=== PATIENT | male | born 1970 | race Caucasian/White ===

== ENCOUNTER 2017-06-20 15:34 | Inpatient (IN) ==
[2017-06-20 16:09] LABS: Bilirubin,Urine Large (Negative); Blood,Urine Negative (Negative); Clarity,Urine Cloudy (Clear); Color,Urine Orange (Yellow); Glucose,Urine (UA) Normal (Normal); Ketones,Urine 15 mg/dL (Negative); Leukocyte Esterase,Urine Small (Negative); Nitrite,Urine Positive (Negative); Protein,Urine 100 mg/dL (Neg-Trace); Specific Gravity,Urine 1.024 (1.010-1.025); Urobilinogen,Urine Normal (Normal)
[2017-06-20 16:11] LABS: Bacteria,Urine None Seen per hpf (None-Few); Squamous Epithelial Cell,Urine Many per lpf (None-Few)
[2017-06-20 16:21] LABS: Hyaline Casts,Urine Moderate per lpf (None-Few)
[2017-06-20 16:25] LABS: RBC,Urine 0-3 per hpf (0-3); Renal Epithelial Cells,Urine Few per hpf (None-Few)
[2017-06-20] MEDS ORDERED: Ondansetron 4 MG/2 ML VIAL IVP ONE (16:28)
[2017-06-20] MEDS ORDERED: 0.9 % Sodium Chloride 1,000 ML IVC ONE ×2 (16:28→19:20)
[2017-06-20] MEDS ORDERED: *HR* FentaNYL (PF) 100 MCG/2 ML VIAL IVP ONE ×2 (16:30→17:59)
[2017-06-20 17:34] LABS: Basophils % 0.3 %; Eosinophils # 0.1 K/mcL (0.0-0.6); Eosinophils % 0.7 %; Hematocrit 41.4 % (37.5-50.1); Immature Granulocytes % 1.3 % (0-4); Immature Platelets 10.5 % (1.1-6.1); Lymphocytes # 1.6 K/mcL (0.6-4.6); Mean Corpuscular HGB Conc 33.8 g/dL (31.6-35.5); Mean Corpuscular Hemoglobin 31.4 pg (28.0-33.3); Mean Corpuscular Volume 92.8 fL (83.0-100.0); Mean Platelet Volume 10.5 fL (9.4-12.4); Monocytes # 1.9 K/mcL (0.0-1.3); Monocytes % 15.8 %; Neutrophils # 8.4 K/mcL (1.6-8.9); Platelet Count 138 K/mcL (140-400); Red Blood Count 4.46 M/mcL (4.19-5.50); Red Cell Distribution Width 13.2 % (11.5-14.5); Segmented Neutrophils % 68.9 %
[2017-06-20 17:49] LABS: Alanine Aminotransferase 32 Units/L (0-55); Albumin 2.6 g/dL (3.5-5.0); Albumin/Globulin Ratio 0.6 (1.1-2.2); Alkaline Phosphatase 112 Units/L (38-126); Aspartate Amino Transferase 60 Units/L (5-34); BUN/Creatinine Ratio 34 (6-26); Bilirubin,Indirect 1.5 mg/dL (0.0-1.2); Bilirubin,Total 5.5 mg/dL (0.2-1.2); Blood Urea Nitrogen 33 mg/dL (8-26); Calcium 8.8 mg/dL (8.6-10.8); Carbon Dioxide 21 mEq/L (19-29); Chloride 95 mEq/L (98-109); Globulin 4.7 g/dL (2.4-3.5); Glucose 117 mg/dL (70-99); Lipase 35 Units/L (8-78); Osmolality,Calculated 286 (280-300); Potassium 3.2 mEq/L (3.5-4.5); Sodium 134 mEq/L (136-145); Total Protein 7.3 g/dL (6.0-8.3); eGFR For African Americans > 60 (> 60); eGFR For Non-African Americans > 60 (> 60)
--- NOTE | 2017-06-20 18:48 | Emergency Department Note ---
Disposition Clinical Impression: Hyperbilirubinemia, Hypokalemia, Confusion, Interstitial pancreatitis, Hepatic steatosis UTI (urinary tract infection) Qualifiers: Urinary tract infection type: site unspecified Hematuria presence: with hematuria Qualified Code(s): N39.0 - Urinary tract infection, site not specified ; R31.9 - Hematuria, unspecified; R31.9 - Hematuria, unspecified Leukocytosis Qualifiers: Leukocytosis type: bandemia Qualified Code(s): D72.825 - Bandemia Disposition: Admitted As Inpatient Condition: Serious Time of Disposition: 20:00 Abdominal Pain HPI - General Chief Complaint: ED Abdominal Pain Stated Complaint: abdominal pain/flank/hematuria/NV Time Seen by Provider: 06/20/17 17:12 Source: patient, EMS Nursing Notes Reviewed: Yes Vital Signs Reviewed: Yes - History of Present Illness HPI Narrative: Patient is a 46-year-old male complains of abdominal pain, nausea vomiting 1 week. Patient states he has no clue why he has these symptoms. Patient's states. Patient appears altered as his has to clarify most of the things he says. Pain Scale: 4 - Related Data Home Medications Medication Instructions Recorded Confirmed Cholecalciferol (Vitamin D3) 10,000 unit PO 2XW 05/23/15 06/20/17 [Vitamin D] Fluticasone Propionate Nasal 2 spray NS DAILY 05/23/15 06/20/17 [Flonase] Folic Acid 1 mg PO DAILY 05/23/15 06/20/17 Loratadine [Claritin] 10 mg PO DAILY 05/23/15 06/20/17 Magnesium 250 mg PO DAILY 05/23/15 06/20/17 Omeprazole [PriLOSEC] 40 mg PO DAILY 05/23/15 06/20/17 Albuterol Sulfate [Ventolin Hfa] 2 puff IH QID PRN 11/18/16 06/20/17 Apixaban [Eliquis] 5 mg PO BID 11/18/16 06/20/17 DULoxetine [Cymbalta] 30 mg PO DAILY 11/18/16 06/20/17 Dicyclomine [Bentyl] 20 mg PO QID 11/18/16 06/20/17 Furosemide [Lasix] 20 mg PO BID 11/18/16 06/20/17 Lidocaine Patch [Lidoderm 5% patch] 1 each TP DAILY PRN 11/18/16 06/20/17 Metoprolol [Lopressor] 100 mg PO BID 11/18/16 06/20/17 Mometasone/Formoterol [Dulera 100 1 puff IH BID 11/18/16 06/20/17 Mcg/5 Mcg Inhaler] Nitroglycerin [Nitrostat] 0.4 mg SL Q5M PRN 11/18/16 06/20/17 HYDROcodone/Acet 7.5/325 mg [[place] 1 tab PO BID PRN 06/20/17 06/20/17 7.5-325 mg] Tiotropium [place] [Spiriva 1 puff IH DAILY 06/20/17 06/20/17 Respimat] Previous Rx's Medication Instructions Recorded Diltiazem CD (24hr) [Cardizem CD] 240 mg PO DAILY #30 cap.er.24h 06/06/15 Allergies Allergy/AdvReac Type Severity Reaction Status Date / Time prednisone AdvReac Joint Pain Verified 06/20/17 15:36 All systems ED: reviewed and negative except as stated. Review of Systems: As Per HPI Constitutional: Denies: fever, chills, weakness Eyes: Denies: vision change ENT ED: Denies: congestion Cardiovascular: Denies: chest pain, dyspnea on exertion Respiratory: Denies: cough, dyspnea, wheezes Gastrointestinal: Reports: abdominal pain, nausea, vomiting, diarrhea Genitourinary: Denies: urgency, dysuria Integumentary: Denies: rash Neurological: Denies: headache Abdominal Pain PMH - Past Medical History Medical history: Reports: atrial fibrillation, CHF, COPD, GERD, hyperlipidemia, hypertension, myocardial infarction, valvular heart disease, other Male Surgical History: Reports: other Psychiatric history: Reports: no psych history - Social History Smoking status: Current every day smoker Alcohol use: Reports: heavy, recent Drug use: Reports: none Physical Exam Vital Signs Temperature 98 F 06/20/17 15:37 Pulse Rate 95 06/20/17 15:37 Respiratory Rate 20 06/20/17 15:37 Blood Pressure 111/72 06/20/17 15:37 O2 Sat by Pulse Oximetry 97 06/20/17 15:37 Temperature 97.5 F L 06/20/17 21:14 Pulse Rate 102 06/20/17 21:14 Respiratory Rate 14 06/20/17 21:14 Blood Pressure 115/73 06/20/17 21:14 O2 Sat by Pulse Oximetry 95 06/20/17 21:14 Oxygen Delivery Oxygen Delivery Room Air 46-year-old male who is alert and oriented 3 at times. Patient has intermittent confusion. Patient has scleral icterus. Patient does not appear healthy vital signs within normal ranges. Patient does follow directions well - General Limitations: no limitations General appearance: alert - Head Head exam: atraumatic, normocephalic, normal inspection - Eye Eye exam: Present: PERRL, EOMI, scleral icterus - ENT ENT exam: normal exam, normal oropharynx, mucous membranes dry - Neck Neck exam: Present: normal inspection, full ROM, trachea midline - Chest Chest inspection: Present: normal inspection, symmetric chest wall rise. Absent : tenderness, rash - Respiratory Respiratory exam: Present: normal lung sounds bilaterally - Cardiovascular Cardiovascular exam: Present: regular rate, normal rhythm, normal heart sounds - Abdominal Exam Abdominal exam: Present: soft, tenderness, normal bowel sounds. Absent: distention, guarding, rebound, rigidity Abdominal tenderness: Present: RUQ, LUQ, epigastrium - Extremities Exam Extremities exam: Present: normal inspection, full ROM. Absent: tenderness, pedal edema - Back Exam Back exam: Present: normal inspection, full ROM. Absent: tenderness, CVA tenderness (R), CVA tenderness (L) Course Vital Signs Temperature 98 F 06/20/17 15:37 Pulse Rate 95 06/20/17 15:37 Respiratory Rate 20 06/20/17 15:37 Blood Pressure 111/72 06/20/17 15:37 O2 Sat by Pulse Oximetry 97 06/20/17 15:37 Temperature 97.5 F L 06/20/17 21:14 Pulse Rate 102 06/20/17 21:14 Respiratory Rate 14 06/20/17 21:14 Blood Pressure 115/73 06/20/17 21:14 O2 Sat by Pulse Oximetry 95 06/20/17 21:14 Oxygen Delivery Oxygen Delivery Room Air Abdominal Pain - MDM Narrative Medical decision making narrative: Patient with abdominal pain and generalized pattern but more intensity across upper abdomen comes in with nausea vomiting 1 week. Patient is confused and has clear icterus. Patient's concerning for hepatic encephalopathy. CT abdomen and pelvis was ordered along with to see a BMP with LFTs. Lactic acid also ordered. Patient started on IV hydration 2 L. Patient's labs show hyperbilirubinemia, elevated lactate, elevated white blood cell count, hyponatremia, hypokalemia, and a UTI. Patient's urine also shows high levels of bilirubin. Patient's CT abdomen and pelvis shows hepatic steatosis, interstitial pancreatitis, inflammation around patient's duodenum. Patient is being admitted for hepatic encephalopathy, electronic Malodors of hypokalemia, complicated UTI patient started on Cipro 400 mg IV once, Flagyl 500 mg IV once, patient's pain is being controlled with fentanyl area patient's had 2 doses 50 g. Patient is currently comfortable. Patient also received 2 L of fluid. Patient understands and accepts this patient for admission. Dr. Giorgi Brown and the hospitalist has accepted patient for admission at 1942 hrs. - Lab Data Lab results reviewed: Yes I reviewed the patient's lab results. Lab results narrative: Short CBC 06/20/17 Range/Units 17:25 WBC 12.2 H (4.3-11.1) K/mcL Hgb 14.0 (12.9-16.9) g/dL Hct 41.4 (37.5-50.1) % Plt Count 138 L (140-400) K/mcL Neutrophils # 8.4 (1.6-8.9) K/mcL BMP 06/20/17 Range/Units 17:25 Sodium 134 L (136-145) mEq/L Potassium 3.2 L (3.5-4.5) mEq/L Chloride 95 L (98-109) mEq/L Carbon Dioxide 21 (19-29) mEq/L BUN 33 H (8-26) mg/dL Creatinine 0.97 (0.72-1.25) mg/dL Glucose 117 H (70-99) mg/dL Calcium 8.8 (8.6-10.8) mg/dL Liver Function 06/20/17 Range/Units 17:25 Total Bilirubin 5.5 H (0.2-1.2) mg/dL Direct Bilirubin 4.0 H (0.0-0.5) mg/dL AST 60 H (5-34) Units/L ALT 32 (0-55) Units/L Alkaline Phosphatase 112 (38-126) Units/L Albumin 2.6 L (3.5-5.0) g/dL Urine 06/20/17 Range/Units 15:50 Urine Color [place] A (Yellow) Urine Clarity Cloudy A (Clear) Urine pH 6.0 (5.0-8.0) pH Units Ur Specific [place] 1.024 (1.010-1.025) Urine Protein 100 H (Neg-Trace) mg/dL Urine Glucose (UA) Normal (Normal) mg/dL Result diagrams: 06/20/17 17:25 06/20/17 17:25 Lab Results 06/20/17 06/20/17 06/20/17 Range/Units 15:50 17:25 17:25 WBC 12.2 H (4.3-11.1) K/mcL RBC 4.46 (4.19-5.50) M/mcL Hgb 14.0 (12.9-16.9) g/dL Hct 41.4 (37.5-50.1) % MCV 92.8 (83.0-100.0) fL MCH 31.4 (28.0-33.3) pg MCHC 33.8 (31.6-35.5) g/dL RDW 13.2 (11.5-14.5) % Plt Count 138 L (140-400) K/mcL MPV 10.5 (9.4-12.4) fL Immature Gran % 1.3 (0-4) % Seg Neutrophils % 68.9 % Lymphocytes % 13.0 % Monocytes % 15.8 % Eosinophils % 0.7 % Basophils % 0.3 % Neutrophils # 8.4 (1.6-8.9) K/mcL Lymphocytes # 1.6 (0.6-4.6) K/mcL Monocytes # 1.9 H (0.0-1.3) K/mcL Eosinophils # 0.1 (0.0-0.6) K/mcL Basophils # 0.0 (0.0-0.2) K/mcL Immature Plt Fraction 10.5 H (1.1-6.1) % Sodium (136-145) mEq/L Potassium (3.5-4.5) mEq/L Chloride (98-109) mEq/L Carbon Dioxide (19-29) mEq/L BUN (8-26) mg/dL Creatinine (0.72-1.25) mg/dL Est GFR ( Amer) (> 60) Est GFR (Non-Af Amer) (> 60) BUN/Creatinine Ratio (6-26) Glucose (70-99) mg/dL Calculated Osmolality (280-300) Lactic Acid 2.5 H (0.5-2.2) mmol/L Calcium (8.6-10.8) mg/dL Total Bilirubin (0.2-1.2) mg/dL Direct Bilirubin (0.0-0.5) mg/dL Indirect Bilirubin (0.0-1.2) mg/dL AST (5-34) Units/L ALT (0-55) Units/L Alkaline Phosphatase (38-126) Units/L Serum Total Protein (6.0-8.3) g/dL Albumin (3.5-5.0) g/dL Globulin (2.4-3.5) g/dL Albumin/Globulin Ratio (1.1-2.2) Lipase (8-78) Units/L Urine Color [place] A (Yellow) Urine Clarity Cloudy A (Clear) Urine pH 6.0 (5.0-8.0) pH Units Ur Specific [place] 1.024 (1.010-1.025) Urine Protein 100 H (Neg-Trace) mg/dL Urine Glucose (UA) Normal (Normal) mg/dL Urine Ketones 15 H (Negative) mg/dL Urine Blood Negative (Negative) Urine Nitrite Positive A (Negative) Urine Bilirubin Large H (Negative) Urine Urobilinogen Normal (Normal) mg/dL Ur Leukocyte Esterase Small H (Negative) Urine Microscopic RBC 0-3 (0-3) per hpf Urine Microscopic WBC 5-15 H (0-3) per hpf Ur Squamous Epith Cells Many H (None-Few) per lpf Ur Renal Epithelial Cell Few (None-Few) per hpf Urine Bacteria None Seen (None-Few) per hpf Hyaline Casts Moderate H (None-Few) per lpf Ur Culture Indicated? YES A (NO) 06/20/17 Range/Units 17:25 WBC (4.3-11.1) K/mcL RBC (4.19-5.50) M/mcL Hgb (12.9-16.9) g/dL Hct (37.5-50.1) % MCV (83.0-100.0) fL MCH (28.0-33.3) pg MCHC (31.6-35.5) g/dL RDW (11.5-14.5) % Plt Count (140-400) K/mcL MPV (9.4-12.4) fL Immature Gran % (0-4) % Seg Neutrophils % % Lymphocytes % % Monocytes % % Eosinophils % % Basophils % % Neutrophils # (1.6-8.9) K/mcL Lymphocytes # (0.6-4.6) K/mcL Monocytes # (0.0-1.3) K/mcL Eosinophils # (0.0-0.6) K/mcL Basophils # (0.0-0.2) K/mcL Immature Plt Fraction (1.1-6.1) % Sodium 134 L (136-145) mEq/L Potassium 3.2 L (3.5-4.5) mEq/L Chloride 95 L (98-109) mEq/L Carbon Dioxide 21 (19-29) mEq/L BUN 33 H (8-26) mg/dL Creatinine 0.97 (0.72-1.25) mg/dL Est GFR ( Amer) > 60 (> 60) Est GFR (Non-Af Amer) > 60 (> 60) BUN/Creatinine Ratio 34 H (6-26) Glucose 117 H (70-99) mg/dL Calculated Osmolality 286 (280-300) Lactic Acid (0.5-2.2) mmol/L Calcium 8.8 (8.6-10.8) mg/dL Total Bilirubin 5.5 H (0.2-1.2) mg/dL Direct Bilirubin 4.0 H (0.0-0.5) mg/dL Indirect Bilirubin 1.5 H (0.0-1.2) mg/dL AST 60 H (5-34) Units/L ALT 32 (0-55) Units/L Alkaline Phosphatase 112 (38-126) Units/L Serum Total Protein 7.3 (6.0-8.3) g/dL Albumin 2.6 L (3.5-5.0) g/dL Globulin 4.7 H (2.4-3.5) g/dL Albumin/Globulin Ratio 0.6 L (1.1-2.2) Lipase 35 (8-78) Units/L Urine Color (Yellow) Urine Clarity (Clear) Urine pH (5.0-8.0) pH Units Ur Specific [place] (1.010-1.025) Urine Protein (Neg-Trace) mg/dL Urine Glucose (UA) (Normal) mg/dL Urine Ketones (Negative) mg/dL Urine Blood (Negative) Urine Nitrite (Negative) Urine Bilirubin (Negative) Urine Urobilinogen (Normal) mg/dL Ur Leukocyte Esterase (Negative) Urine Microscopic RBC (0-3) per hpf Urine Microscopic WBC (0-3) per hpf Ur Squamous Epith Cells (None-Few) per lpf Ur Renal Epithelial Cell (None-Few) per hpf Urine Bacteria (None-Few) per hpf Hyaline Casts (None-Few) per lpf Ur Culture Indicated? (NO) - Radiology Data Radiology results reviewed: Yes I reviewed the patient's radiology results. Abdomen/Pelvis CT 06/20/17 16:30 IMPRESSION: 1. Findings are most compatible with acute interstitial pancreatitis. No definite necrosis identified. 2. Mild wall thickening of the second portion of the duodenum likely reactive. There is also mild enhancement of the distal common bile duct, which may also be reactive. 3. Hepatic steatosis. 4. The main portal vein at the brandi splenic confluence is not well visualized and underlying portal vein thrombus cannot be entirely excluded given the timing of the contrast bolus and peripancreatic inflammation. D/ / 06/20/2017 19:17:01 Rika Cardenas MD / chung Interpreting Provider: Rika Cardenas MD Head CT 06/20/17 19:55 IMPRESSION: No acute intracranial abnormality. D/ / Yohan Trujillo MD / Yohan Trujillo MD Interpreting Provider: Yohan Trujillo MD Attestation Statement - Attestation Attestation: I examined this patient and my medical decision-making was reviewed with the Resident Physician. I agree with the documented findings, disposition and treatment plan as described except to the extent set forth below. Patient presents to the ED with abdominal pain. He complains of lower abdominal pain. No fever. History of pancreatitis. On examination his tenderness is epigastric, not lower. He is not guarding. Plan. Patient has acute pancreatitis on the CT scan. Reactive inflammation of the small bowel as well. Patient has an elevated bilirubin and is believed to be secondary to this. His lipase is normal. Patient is admitted to medicine. He is also given IV antibiotic for his urine.
[2017-06-20] MEDS ORDERED: Naloxone 0.4 MG/ML INJ IVP PRN (19:46)
[2017-06-20] MEDS ORDERED: Albuterol 2.5 MG/3 ML NEBULIZER IH PRN (19:50)
--- NOTE | 2017-06-20 19:53 | Internal Med History&Physical ---
Date of Encounter: 06/20/17 Time of Encounter: 19:51 Assessment and Plan (1) Acute encephalopathy Current visit: Yes Status: Acute Patient with a history of alcohol abuse, but denies recent alcohol use, presents with hallucination, confusion and intermittent depressed level of consciousness, the etiology of the encephalopathy is multifactorial; hepatic encephalopathy vs alcoholic hallucinosis vs delirium tremens vs septic encephalopathy, UA was suggestive of UTI, head CT was unremarkable for bleed, will admit for further investigations, will treat for UTI, give lactulose, neuro checks Qshift, aspiration, fall and seizure precautions, will check urine toxicology (2) Abdominal pain Current visit: Yes Status: Acute likely from acute pancreatitis with reactive duodenitis,will use non sedating analgesics until mentation improves Qualifiers: Abdominal location: generalized Qualified Code(s): R10.84 - Generalized abdominal pain (3) Acute pancreatitis Current visit: Yes Status: Acute Related to alcohol abuse, aggressive IV fluid resuscitation, pain management( will hold off use of narcotics due to encephalopathy) Qualifiers: Pancreatitis type: alcohol induced Acute pancreatitis complication: no infection or necrosis Qualified Code(s): K85.20 - Alcohol induced acute pancreatitis without necrosis or infection (4) Hypokalemia Current visit: Yes Status: Acute Potassium of 3.2, may be from diuretics or poor oral intake, will replace and follow BMP (5) Acute alcoholic hepatitis Current visit: Yes Status: Acute Elevated LFTs and bilirubin likely from alcohol abuse vs obstruction from the inflamed pancreas, will need counseling when mentation improves, will trend LFT' s (6) Alcohol abuse Current visit: Yes Status: Chronic Last drink was about 5 to 6 days ago, he should be out of withdrawal phase by now if what he reported is anything to go by, we will still monitor for withdrawal to be safe (7) Chronic obstructive bronchitis Current visit: Yes Status: Chronic stable, albuterol nebs PRN (8) Hypertension Current visit: Yes Status: Chronic will continue antihypertensives with BP monitoring Qualifiers: Hypertension type: essential hypertension Qualified Code(s): I10 - Essential (primary) hypertension (9) Paroxysmal atrial fibrillation Current visit: Yes Status: Chronic he is on rate control with metoprolol and systemic anticoagulation with Eqliquis which we will continue (10) GERD (gastroesophageal reflux disease) Current visit: Yes Status: Chronic continue PPI Qualifiers: Esophagitis presence: without esophagitis Qualified Code(s): K21.9 - Gastro -esophageal reflux disease without esophagitis Internal Medicine - H&P: HPI Chief complaint: Abdominal pain Admitted From: Emergency Dept Plans for Post Hospital Care: Home History of present illness: Mr. Pires is a 46 year old male with a history of alcohol abuse complicated by recurrent episodes of acute pancreatitis was brought in for altered mental status. Per patient he woke up confused with a fever and yellow eyes. History is limited due to his confusion. His was noted to be equally drowsy in the ER upon presentation so could not provide significant additional history. Limited history was therefore obtained from the patient, staff, chart review as well as ER physician notes. Per reports he has been experiencing nausea and vomiting as well as progressively worsening abdominal pain and distention for the past one week. The pain is achy and diffuse associated with abdominal distension which has also been gradual. He reports that he still drinks alcohol but his last drink was about 5 to 6 days ago. He denies change in urinary or bowel habits, no respiratory tract symptoms. His brought him in today due to worsening confusion. Past Med Surg Social Fam HX - Past Medical History Source: patient, old records reviewed Medical history: atrial fibrillation, CHF, COPD, GERD, hyperlipidemia, hypertension, myocardial infarction, valvular heart disease, other Psychiatric history: no psych history - Past Surgical History Surgical History: other (right arm surgery, left knee surgery, no history of abdominal surgery) - Social History Smoking Status: Current every day smoker Smokeless Tobacco Status: No (1 PPD) Alcohol use: heavy, recent Drug use: none - Family History Mother Adopted: No Family Member Ethnicity: Non- Living Status: Hx Family Cardiac Disorders: Yes Hx Family Respiratory Disorders: Yes (COPD) Hx Family Cancer: Yes (heqart disease) Father Hx Family Cardiac Disorders: Yes Internal Medicine - H&P: Meds Cholecalciferol (Vitamin D3) [Vitamin D] 10,000 unit PO 2XW 05/23/15 [History] Fluticasone Propionate Nasal [Flonase] 2 spray NS DAILY 05/23/15 [History] Folic Acid 1 mg PO DAILY 05/23/15 [History] Loratadine [Claritin] 10 mg PO DAILY 05/23/15 [History] Magnesium 250 mg PO DAILY 05/23/15 [History] Omeprazole [PriLOSEC] 40 mg PO DAILY 05/23/15 [History] Diltiazem CD (24hr) [Cardizem CD] 240 mg PO DAILY #30 cap.er.24h 06/06/15 [Rx] Albuterol Sulfate [Ventolin Hfa] 2 puff IH QID PRN 11/18/16 [History] Apixaban [Eliquis] 5 mg PO BID 11/18/16 [History] DULoxetine [Cymbalta] 30 mg PO DAILY 11/18/16 [History] Dicyclomine [Bentyl] 20 mg PO QID 11/18/16 [History] Furosemide [Lasix] 20 mg PO BID 11/18/16 [History] Lidocaine Patch [Lidoderm 5% patch] 1 each TP DAILY PRN 11/18/16 [History] Metoprolol [Lopressor] 100 mg PO BID 11/18/16 [History] Mometasone/Formoterol [Dulera 100 Mcg/5 Mcg Inhaler] 1 puff IH BID 11/18/16 [ History] Nitroglycerin [Nitrostat] 0.4 mg SL Q5M PRN 11/18/16 [History] HYDROcodone/Acet 7.5/325 mg [[place] 7.5-325 mg] 1 tab PO BID PRN 06/20/17 [ History] Tiotropium [place] [Spiriva Respimat] 1 puff IH DAILY 06/20/17 [History] 3 Allergy/AdvReac Type Severity Reaction Status Date / Time prednisone AdvReac Joint Pain Verified 06/20/17 15:36 All Systems PM: A 10-system review of systems was performed and is negative for pertinent findings except as documented above in the HPI. - Constitutional Vitals: Temp Pulse Resp BP Pulse Ox 98 F 102 18 119/81 93 06/20/17 15:37 06/20/17 19:50 06/20/17 19:50 06/20/17 19:50 06/20/17 19:50 GENERAL: Adult male, lying in bed, drowsy, not in obvious pain or distress HEENT: NC/AT, EOMI, PERRLA, icteric sclera, normal conjunctiva, supple, clear nares, dry mucous membranes, RESP: End expiratory wheeze with prolonged expiratory phase, no crackles CARDIO: Normal heart sounds with RRR, no murmurs, no JVD, trace ankle edema GI: Soft, distended, tense with diffuse tenderness, no organomegaly felt, normal bowel sounds heard MUSCULOSKELETAL: Grossly normal movements bilaterally, no deformities noted, NEUROLOGIC: CN 2-12 intact grossly. No gross motor/sensory deficit appreciated, PSYCHIATRY: AAO x 2-self and date but said he was in [place] SKIN: no skin rash or ulcers noted Internal Med - H&P Results - Labs CBC & Chem 7: 06/21/17 03:26 06/21/17 03:26 Labs: Short CBC 06/20/17 Range/Units 17:25 WBC 12.2 H (4.3-11.1) K/mcL Hgb 14.0 (12.9-16.9) g/dL Hct 41.4 (37.5-50.1) % Plt Count 138 L (140-400) K/mcL Neutrophils # 8.4 (1.6-8.9) K/mcL BMP 06/20/17 17:25 Sodium 134 L Potassium 3.2 L Chloride 95 L Carbon Dioxide 21 BUN 33 H Creatinine 0.97 Glucose 117 H Calcium 8.8 Liver Function 06/20/17 Range/Units 17:25 Total Bilirubin 5.5 H (0.2-1.2) mg/dL Direct Bilirubin 4.0 H (0.0-0.5) mg/dL AST 60 H (5-34) Units/L ALT 32 (0-55) Units/L Alkaline Phosphatase 112 (38-126) Units/L Albumin 2.6 L (3.5-5.0) g/dL Urine 06/20/17 Range/Units 15:50 Urine Color [place] A (Yellow) Urine Clarity Cloudy A (Clear) Urine pH 6.0 (5.0-8.0) pH Units Ur Specific [place] 1.024 (1.010-1.025) Urine Protein 100 H (Neg-Trace) mg/dL Urine Glucose (UA) Normal (Normal) mg/dL - Impressions ITS Impressions Abdomen/Pelvis CT 06/20/17 16:30 IMPRESSION: 1. Findings are most compatible with acute interstitial pancreatitis. No definite necrosis identified. 2. Mild wall thickening of the second portion of the duodenum likely reactive. There is also mild enhancement of the distal common bile duct, which may also be reactive. 3. Hepatic steatosis. 4. The main portal vein at the brandi splenic confluence is not well visualized and underlying portal vein thrombus cannot be entirely excluded given the timing of the contrast bolus and peripancreatic inflammation. D/ / 06/20/2017 19:17:01 Rika Cardenas MD / chung Interpreting Provider: Rika Cardenas MD - Diagnostic Studies CT scan - abdomen Status: image reviewed by me CT scan - head Status: image reviewed by me
[2017-06-20] MEDS ORDERED: Potassium Chloride Elixir 20 MEQ/15 ML UDC PO ONE (19:56)
[2017-06-20] MEDS ORDERED: *HR* LORazepam 2 MG/ML VIAL IVP PRN ×2 (19:58)
[2017-06-20] MEDS: *HR* LORazepam 2 MG/ML VIAL IVP PRN (21:57)
[2017-06-20] MEDS: Lactulose Oral Soln 20 GM/30 ML UDC PO SCH (21:57)
[2017-06-20] MEDS: APIXABAN 5 MG TABLET PO SCH (21:57)
[2017-06-20] MEDS ORDERED: *HR* LORazepam 2 MG/ML VIAL IM STA (23:33)
[2017-06-21 00:29] LABS: Amphetamine Screen,Urine Negative ng/mL (Cutoff=1000); Barbiturate Screen,Urine Negative ng/mL (Cutoff=200); Benzodiazepines Screen,Urine Negative ng/mL (Cutoff=200); Cannabinoid Screen,Urine Negative ng/mL (Cutoff = 50); Cocaine Screen,Urine Negative ng/mL (Cutoff= 300); Opiate Screen,Urine Positive ng/mL (Cutoff=300); Phencyclidine Screen,Urine Negative ng/mL (Cutoff=25)
[2017-06-21 03:46] LABS: Hematocrit 39.2 % (37.5-50.1); Hemoglobin 13.4 g/dL (12.9-16.9); Mean Corpuscular HGB Conc 34.2 g/dL (31.6-35.5); Mean Corpuscular Hemoglobin 31.8 pg (28.0-33.3); Mean Corpuscular Volume 93.1 fL (83.0-100.0); Mean Platelet Volume 10.2 fL (9.4-12.4); Platelet Count 121 K/mcL (140-400); Red Blood Count 4.21 M/mcL (4.19-5.50); Red Cell Distribution Width 13.4 % (11.5-14.5)
[2017-06-21] MEDS: Albuterol 2.5 MG/3 ML NEBULIZER IH SCH ×6 (03:53→20:20)
[2017-06-21 04:01] LABS: INR 1.3; Prothrombin Time 14.1 Seconds (9.4-12.1)
[2017-06-21 04:04] LABS: Activated Partial Thrombo Time 27.3 Seconds (26.0-36.0); Alanine Aminotransferase 33 Units/L (0-55); Albumin 2.6 g/dL (3.5-5.0); Albumin/Globulin Ratio 0.6 (1.1-2.2); Alkaline Phosphatase 124 Units/L (38-126); Aspartate Amino Transferase 57 Units/L (5-34); BUN/Creatinine Ratio 28 (6-26); Blood Urea Nitrogen 28 mg/dL (8-26); Calcium 8.7 mg/dL (8.6-10.8); Carbon Dioxide 24 mEq/L (19-29); Chloride 99 mEq/L (98-109); Globulin 4.5 g/dL (2.4-3.5); Glucose 146 mg/dL (70-99); Magnesium 1.4 mg/dL (1.6-2.6); Osmolality,Calculated 288 (280-300); Phosphorous 2.6 mg/dL (2.3-4.7); Potassium 3.3 mEq/L (3.5-4.5); Sodium 135 mEq/L (136-145); Total Protein 7.1 g/dL (6.0-8.3); eGFR For African Americans > 60 (> 60); eGFR For Non-African Americans > 60 (> 60)
[2017-06-21 04:07] LABS: Bilirubin,Total 5.1 mg/dL (0.2-1.2)
[2017-06-21 04:59] LABS: Lymphocytes # 1.3 K/mcL (0.6-4.6); Monocytes # 2.1 K/mcL (0.0-1.3)
[2017-06-21 05:00] LABS: Platelet Estimate Slight Decrease (Normal)
[2017-06-21] MEDS: Diltiazem CD (24hr) 240 MG CAPSULE PO SCH (08:04)
[2017-06-21] MEDS: Fluticasone Propionate Nasal 50 MCG/SPRAY BOTTLE NS SCH (08:04)
[2017-06-21] MEDS: APIXABAN 5 MG TABLET PO SCH ×2 (08:04→21:11)
[2017-06-21] MEDS: Loratadine 10 MG TABLET PO SCH (08:04)
[2017-06-21] MEDS ORDERED: Magnesium Sulfate 2 GM in D5% in Water 100 ML IVPB ONE (08:04)
[2017-06-21] MEDS: Lactulose Oral Soln 20 GM/30 ML UDC PO SCH ×2 (08:05→21:10)
[2017-06-21] MEDS: Folic Acid 1 MG TABLET PO SCH (08:05)
[2017-06-21] MEDS: Thiamine (B-1) 100 MG TABLET PO SCH (08:05)
[2017-06-21] MEDS: Vitamin B Complex/Vit C/Vit E 1 EACH TABLET PO SCH (08:05)
[2017-06-21] MEDS: 0.9 % Sodium Chloride 1,000 ML IVC SCH (14:39)
--- NOTE | 2017-06-21 15:57 | Internal Med Progress Note ---
Date of Encounter: 06/21/17 Time of Encounter: 13:55 - Assessment and plan (1) Acute encephalopathy Current Visit: Yes Status: Acute Assessment and plan: Of unclear etiology- hepatic encephalopathy vs alcoholic hallucinosis vs delirium tremens vs septic encephalopathy mental status improved from previous day as per records will continue treating UTI monitor for signs of alcohol withdrawal treat acute pancreatitis closely monitor mental status (2) UTI (urinary tract infection) Current Visit: Yes Status: Acute Assessment and plan: continue IV abx urine culture showed no growth will treat for a total of 7 days Qualifiers: Urinary tract infection type: site unspecified Hematuria presence: without hematuria Qualified Code(s): N39.0 - Urinary tract infection, site not specified (3) Acute pancreatitis Current Visit: Yes Status: Acute Assessment and plan: continue IV fluids supportive care diet as tolerated Qualifiers: Pancreatitis type: alcohol induced Acute pancreatitis complication: no infection or necrosis Qualified Code(s): K85.20 - Alcohol induced acute pancreatitis without necrosis or infection (4) Electrolyte abnormality Current Visit: Yes Status: Acute Assessment and plan: Hypokalemia and Hypomagnesemia K and Mg supplemented continue to monitor electrolytes and replace as needed (5) Acute alcoholic hepatitis Current Visit: Yes Status: Acute Assessment and plan: LFTs improved from previous day pt counselled about alcohol abuse and states he is trying to quit however he has had to drink because of the shakes, will obtain social work consultation for resources upon discharge continue to monitor LFTs (6) Alcohol abuse Current Visit: Yes Status: Chronic Assessment and plan: continue CIWA monitoring for alcohol withdrawal continue thiamine and folate (7) Hypertension Current Visit: Yes Status: Chronic Assessment and plan: BP within acceptable range continue home meds Qualifiers: Hypertension type: essential hypertension Qualified Code(s): I10 - Essential (primary) hypertension (8) Paroxysmal atrial fibrillation Current Visit: Yes Status: Chronic Assessment and plan: Will continue Metoprolol for rate control Eliquis for anticoagulation tele monitoring (9) Tobacco abuse Current Visit: No Status: Chronic (10) DVT prophylaxis Current Visit: Yes Status: Acute Assessment and plan: anticoagulated with Eliquis - Subjective Interval history: Pt seen and examined at bedside. Resting in bed and reports of feeling better compared to previous day. Overnight pt was noted to be extremely confused, agitated requiring IV ativan for agitation. He remains somnolent throughout the day but easily arousable. Currently AAO x 3 but somnolent - Constitutional Vitals: Temp Pulse Resp BP Pulse Ox 98.0 F 100 18 144/77 94 06/21/17 11:53 06/21/17 11:53 06/21/17 11:53 06/21/17 11:53 06/21/17 11:53 General appearance: Present: A&O X 3, no acute distress, obese, answers questions appropriately - Head Head exam: Present: atraumatic, normocephalic - Eye Eye exam: Present: conjuntiva pink, sclera anicteric - Respiratory Respiratory exam: Present: CTAB. Absent: accessory muscle use, rales, rhonchi, wheezes - Cardiovascular Cardiovascular exam: Present: RRR, +S1, +S2. Absent: diastolic murmur, gallop, rubs, systolic murmur - GI/Abdominal GI/Abdominal exam: Present: distended (obese), normal bowel sounds, soft, no peritoneal signs. Absent: tenderness - Extremities Exam Extremities exam: Present: warm, radial pulses palpable and symmetrical. Absent : calf tenderness, cyanotic, pedal edema - Neurological Exam Neurological exam: Present: alert, oriented X3 - Psychiatric Psychiatric exam: Present: normal affect, normal mood Internal Medicine: Result - Labs CBC & Chem 7: 06/21/17 03:26 06/21/17 03:26 Labs: Short CBC 06/21/17 Range/Units 03:26 WBC 9.4 (4.3-11.1) K/mcL Hgb 13.4 (12.9-16.9) g/dL Hct 39.2 (37.5-50.1) % Plt Count 121 L (140-400) K/mcL Neutrophils # 6.0 (1.6-8.9) K/mcL BMP 06/21/17 03:26 Sodium 135 L Potassium 3.3 L Chloride 99 Carbon Dioxide 24 BUN 28 H Creatinine 0.99 Glucose 146 H Calcium 8.7 Liver Function 06/21/17 Range/Units 03:26 Total Bilirubin 5.1 H (0.2-1.2) mg/dL AST 57 H (5-34) Units/L ALT 33 (0-55) Units/L Alkaline Phosphatase 124 (38-126) Units/L Albumin 2.6 L (3.5-5.0) g/dL - ABG Interpretation ABG results: PT/INR, D-dimer PT 14.1 Seconds (9.4-12.1) H 06/21/17 03:26 Consult Discharge Plan - Plan Referrals: Sugar Diggs CNP [Primary Care Provider] -
[2017-06-21] MEDS: Furosemide 20 MG TABLET PO SCH (16:43)
[2017-06-21] MEDS: *HR* HYDROcodone/Acet 7.5/325 mg TABLET PO PRN (16:43)
[2017-06-21] MEDS: *HR* LORazepam 2 MG/ML VIAL IVP PRN (17:44)
[2017-06-21] MEDS: Potassium Chloride Elixir 20 MEQ/15 ML UDC PO SCH (21:10)
[2017-06-22] MEDS: Albuterol 2.5 MG/3 ML NEBULIZER IH SCH ×7 (00:44→23:43)
[2017-06-22] MEDS: 0.9 % Sodium Chloride 1,000 ML IVC SCH ×2 (00:50→12:58)
[2017-06-22] MEDS: *HR* LORazepam 2 MG/ML VIAL IVP PRN ×2 (01:02→17:17)
[2017-06-22] MEDS: Ondansetron 4 MG/2 ML VIAL IVP PRN (03:01)
[2017-06-22 07:22] LABS: Basophils # 0.1 K/mcL (0.0-0.2); Basophils % 0.8 %; Eosinophils # 0.1 K/mcL (0.0-0.6); Eosinophils % 0.7 %; Hematocrit 39.6 % (37.5-50.1); Hemoglobin 13.2 g/dL (12.9-16.9); Immature Granulocytes % 2.6 % (0-4); Lymphocytes # 0.8 K/mcL (0.6-4.6); Mean Corpuscular HGB Conc 33.3 g/dL (31.6-35.5); Mean Platelet Volume 11.8 fL (9.4-12.4); Monocytes % 23.6 %; Neutrophils # 5.3 K/mcL (1.6-8.9); Platelet Count 126 K/mcL (140-400); Red Blood Count 4.26 M/mcL (4.19-5.50); Red Cell Distribution Width 13.5 % (11.5-14.5); Segmented Neutrophils % 63.3 %
[2017-06-22] MEDS: Loratadine 10 MG TABLET PO SCH (07:25)
[2017-06-22] MEDS: Furosemide 20 MG TABLET PO SCH ×2 (07:25→17:16)
[2017-06-22] MEDS: Diltiazem CD (24hr) 240 MG CAPSULE PO SCH (07:25)
[2017-06-22] MEDS: Vitamin B Complex/Vit C/Vit E 1 EACH TABLET PO SCH (07:26)
[2017-06-22] MEDS: APIXABAN 5 MG TABLET PO SCH ×2 (07:26→20:12)
[2017-06-22] MEDS: Fluticasone Propionate Nasal 50 MCG/SPRAY BOTTLE NS SCH (07:26)
[2017-06-22] MEDS: Folic Acid 1 MG TABLET PO SCH (07:26)
[2017-06-22] MEDS: Potassium Chloride Elixir 20 MEQ/15 ML UDC PO SCH ×2 (07:27→20:11)
[2017-06-22] MEDS: Lactulose Oral Soln 20 GM/30 ML UDC PO SCH ×2 (07:27→20:12)
[2017-06-22] MEDS: Thiamine (B-1) 100 MG TABLET PO SCH (07:27)
[2017-06-22] MEDS: Magnesium Oxide 400 MG TABLET PO SCH (07:27)
[2017-06-22 07:43] LABS: Alanine Aminotransferase 36 Units/L (0-55); Albumin 2.6 g/dL (3.5-5.0); Albumin/Globulin Ratio 0.6 (1.1-2.2); Alkaline Phosphatase 148 Units/L (38-126); Aspartate Amino Transferase 61 Units/L (5-34); BUN/Creatinine Ratio 19 (6-26); Bilirubin,Total 6.1 mg/dL (0.2-1.2); Calcium 8.6 mg/dL (8.6-10.8); Carbon Dioxide 24 mEq/L (19-29); Chloride 101 mEq/L (98-109); Globulin 4.4 g/dL (2.4-3.5); Glucose 135 mg/dL (70-99); Magnesium 1.5 mg/dL (1.6-2.6); Osmolality,Calculated 285 (280-300); Phosphorous 1.9 mg/dL (2.3-4.7); Potassium 3.5 mEq/L (3.5-4.5); Sodium 136 mEq/L (136-145); eGFR For African Americans > 60 (> 60); eGFR For Non-African Americans > 60 (> 60)
[2017-06-22 08:06] LABS: Blood Urea Nitrogen 14 mg/dL (8-26)
[2017-06-22] MEDS ORDERED: Magnesium Sulfate 2 GM in D5% in Water 100 ML IVPB ONE (08:30)
[2017-06-22] MEDS: *HR* HYDROcodone/Acet 7.5/325 mg TABLET PO PRN (11:44)
--- NOTE | 2017-06-22 16:03 | Internal Med Progress Note ---
Date of Encounter: 06/22/17 Time of Encounter: 16:01 - Assessment and plan (1) Acute encephalopathy Current Visit: Yes Status: Acute Assessment and plan: Of unclear etiology- hepatic encephalopathy vs alcoholic hallucinosis vs delirium tremens vs septic encephalopathy mental status waxes and wanes, currently confused, unclear if it is secondary to the ativan administration vs. metabolic causes noted to have worsening T-bili, will obtain liver US and hepatitis serologies will continue treating UTI monitor for signs of alcohol withdrawal treat acute pancreatitis closely monitor mental status (2) UTI (urinary tract infection) Current Visit: Yes Status: Acute Assessment and plan: continue IV abx urine culture showed no growth will treat for a total of 7 days Qualifiers: Urinary tract infection type: site unspecified Hematuria presence: without hematuria Qualified Code(s): N39.0 - Urinary tract infection, site not specified (3) Acute pancreatitis Current Visit: Yes Status: Acute Assessment and plan: supportive care diet as tolerated pt denies any painful distress and tolerating PO intake well Qualifiers: Pancreatitis type: alcohol induced Acute pancreatitis complication: no infection or necrosis Qualified Code(s): K85.20 - Alcohol induced acute pancreatitis without necrosis or infection (4) Electrolyte abnormality Current Visit: Yes Status: Acute Assessment and plan: Hypomagnesemia Mg supplemented continue to monitor electrolytes and replace as needed (5) Acute alcoholic hepatitis Current Visit: Yes Status: Acute Assessment and plan: LFTs worsened from previous day will obtain liver US hepatitis serologies continue to monitor LFTs (6) Alcohol abuse Current Visit: Yes Status: Chronic Assessment and plan: continue CIWA monitoring for alcohol withdrawal continue thiamine and folate (7) Hypertension Current Visit: Yes Status: Chronic Assessment and plan: BP within acceptable range continue home meds Qualifiers: Hypertension type: essential hypertension Qualified Code(s): I10 - Essential (primary) hypertension (8) Paroxysmal atrial fibrillation Current Visit: Yes Status: Chronic Assessment and plan: Will continue Metoprolol for rate control Eliquis for anticoagulation tele monitoring (9) Tobacco abuse Current Visit: No Status: Chronic (10) DVT prophylaxis Current Visit: Yes Status: Acute Assessment and plan: anticoagulated with Eliquis - Subjective Interval history: Pt seen and examined at bedside. Reported to have CIWA score of 10 requiring Ativan administration overnight and this morning due to which remains somnolent. He is easily arousable but only oriented to self and place. Noted to have worsening of Tbili with icterus sclera, denies any pain at this time. - Constitutional Vitals: Temp Pulse Resp BP Pulse Ox 98.2 F 73 17 104/75 98 06/22/17 15:06 06/22/17 15:06 06/22/17 15:06 06/22/17 15:06 06/22/17 15:06 General appearance: Present: A&O X 2, no acute distress, obese, answers questions appropriately - Head Head exam: Present: atraumatic, normocephalic - Eye Eye exam: Present: conjuntiva pink, sclera anicteric - Respiratory Respiratory exam: Present: CTAB. Absent: accessory muscle use, rales, rhonchi, wheezes - Cardiovascular Cardiovascular exam: Present: RRR, +S1, +S2. Absent: diastolic murmur, gallop, rubs, systolic murmur - GI/Abdominal GI/Abdominal exam: Present: distended (obese), normal bowel sounds, soft, no peritoneal signs. Absent: tenderness - Extremities Exam Extremities exam: Present: warm, radial pulses palpable and symmetrical. Absent : calf tenderness, cyanotic, pedal edema - Neurological Exam Neurological exam: Present: alert Internal Medicine: Result - Labs CBC & Chem 7: 06/22/17 06:46 06/22/17 06:46 Labs: Short CBC 06/22/17 Range/Units 06:46 WBC 8.4 (4.3-11.1) K/mcL Hgb 13.2 (12.9-16.9) g/dL Hct 39.6 (37.5-50.1) % Plt Count 126 L (140-400) K/mcL Neutrophils # 5.3 (1.6-8.9) K/mcL BMP 06/22/17 06:46 Sodium 136 Potassium 3.5 Chloride 101 Carbon Dioxide 24 BUN 14 D Creatinine 0.73 Glucose 135 H Calcium 8.6 Liver Function 06/22/17 Range/Units 06:46 Total Bilirubin 6.1 H (0.2-1.2) mg/dL AST 61 H (5-34) Units/L ALT 36 (0-55) Units/L Alkaline Phosphatase 148 H (38-126) Units/L Albumin 2.6 L (3.5-5.0) g/dL - ABG Interpretation ABG results: PT/INR, D-dimer PT 14.1 Seconds (9.4-12.1) H 06/21/17 03:26 Consult Discharge Plan - Plan Referrals: Sugar Diggs, JENNIFER [Primary Care Provider] -
[2017-06-23] MEDS: Albuterol 2.5 MG/3 ML NEBULIZER IH SCH ×5 (03:40→20:11)
[2017-06-23 04:26] LABS: Hematocrit 38.4 % (37.5-50.1); Hemoglobin 12.9 g/dL (12.9-16.9); Mean Corpuscular HGB Conc 33.6 g/dL (31.6-35.5); Mean Corpuscular Hemoglobin 30.9 pg (28.0-33.3); Mean Corpuscular Volume 92.1 fL (83.0-100.0); Mean Platelet Volume 11.2 fL (9.4-12.4); Platelet Count 141 K/mcL (140-400); Red Blood Count 4.17 M/mcL (4.19-5.50); Red Cell Distribution Width 13.8 % (11.5-14.5)
[2017-06-23 04:44] LABS: BUN/Creatinine Ratio 15 (6-26); Blood Urea Nitrogen 10 mg/dL (8-26); Calcium 8.7 mg/dL (8.6-10.8); Carbon Dioxide 24 mEq/L (19-29); Chloride 101 mEq/L (98-109); Glucose 131 mg/dL (70-99); Magnesium 1.3 mg/dL (1.6-2.6); Osmolality,Calculated 283 (280-300); Phosphorous 1.9 mg/dL (2.3-4.7); Potassium 3.5 mEq/L (3.5-4.5); Sodium 136 mEq/L (136-145); eGFR For African Americans > 60 (> 60); eGFR For Non-African Americans > 60 (> 60)
[2017-06-23 05:03] LABS: Hepatitis B Surface Antigen Nonreactive (Nonreactive)
[2017-06-23 05:12] LABS: Eosinophils # 0.3 K/mcL (0.0-0.6); Lymphocytes # 0.9 K/mcL (0.6-4.6); Platelet Estimate Normal (Normal)
[2017-06-23] MEDS: *HR* HYDROcodone/Acet 7.5/325 mg TABLET PO PRN ×2 (09:37→21:07)
[2017-06-23] MEDS: Vitamin B Complex/Vit C/Vit E 1 EACH TABLET PO SCH (09:37)
[2017-06-23] MEDS: Furosemide 20 MG TABLET PO SCH ×2 (09:37→16:59)
[2017-06-23] MEDS: Thiamine (B-1) 100 MG TABLET PO SCH (09:37)
[2017-06-23] MEDS: Diltiazem CD (24hr) 240 MG CAPSULE PO SCH (09:37)
[2017-06-23] MEDS: Folic Acid 1 MG TABLET PO SCH (09:37)
[2017-06-23] MEDS: Potassium Chloride Elixir 20 MEQ/15 ML UDC PO SCH ×2 (09:37→21:08)
[2017-06-23] MEDS: Magnesium Oxide 400 MG TABLET PO SCH (09:38)
[2017-06-23] MEDS: APIXABAN 5 MG TABLET PO SCH ×2 (09:38→21:07)
[2017-06-23] MEDS: Lactulose Oral Soln 20 GM/30 ML UDC PO SCH ×2 (09:38→21:08)
[2017-06-23] MEDS: Fluticasone Propionate Nasal 50 MCG/SPRAY BOTTLE NS SCH (09:38)
[2017-06-23] MEDS: Loratadine 10 MG TABLET PO SCH (09:38)
[2017-06-23 10:44] LABS: Hepatitis C Virus Antibody Nonreactive (Nonreactive)
[2017-06-23] MEDS: Magnesium Sulfate 2 GM in D5% in Water 100 ML IVPB SCH ×2 (10:56→12:41)
[2017-06-23 11:30] LABS: Hepatitis A Antibody IgM Nonreactive (Nonreactive); Hepatitis B Core IgM Nonreactive (Nonreactive)
--- NOTE | 2017-06-23 16:45 | Internal Med Progress Note ---
Date of Encounter: 06/23/17 Time of Encounter: 16:44 - Assessment and plan (1) Acute encephalopathy Current Visit: Yes Status: Acute Assessment and plan: Of unclear etiology- hepatic encephalopathy vs alcoholic hallucinosis vs delirium tremens vs septic encephalopathy mental status waxes and wanes, unclear if it is secondary to the ativan administration vs. metabolic causes noted to have worsening T-bili Liver US reported dilated CBD and MRCP recommended will obtain MRCP will continue treating UTI monitor for signs of alcohol withdrawal treat acute pancreatitis closely monitor mental status (2) UTI (urinary tract infection) Current Visit: Yes Status: Acute Assessment and plan: continue IV abx urine culture showed no growth will treat for a total of 7 days Qualifiers: Urinary tract infection type: site unspecified Hematuria presence: without hematuria Qualified Code(s): N39.0 - Urinary tract infection, site not specified (3) Acute pancreatitis Current Visit: Yes Status: Acute Assessment and plan: supportive care diet as tolerated pt denies any painful distress and tolerating PO intake well Qualifiers: Pancreatitis type: alcohol induced Acute pancreatitis complication: no infection or necrosis Qualified Code(s): K85.20 - Alcohol induced acute pancreatitis without necrosis or infection (4) Electrolyte abnormality Current Visit: Yes Status: Acute Assessment and plan: Hypomagnesemia and hypophosphatemia Mg and phos supplemented continue to monitor electrolytes and replace as needed (5) Acute alcoholic hepatitis Current Visit: Yes Status: Acute Assessment and plan: LFTs worsened from previous day hepatitis serologies nonreactive continue to monitor LFTs (6) Alcohol abuse Current Visit: Yes Status: Chronic Assessment and plan: continue CIWA monitoring for alcohol withdrawal continue thiamine and folate (7) Hypertension Current Visit: Yes Status: Chronic Assessment and plan: Noted to be hypertensive this morning added Hydralazine 10mg iV q6h sbp>160 continue to monitor continue home meds Qualifiers: Hypertension type: essential hypertension Qualified Code(s): I10 - Essential (primary) hypertension (8) Paroxysmal atrial fibrillation Current Visit: Yes Status: Chronic Assessment and plan: Will continue Metoprolol for rate control Eliquis for anticoagulation tele monitoring (9) Tobacco abuse Current Visit: No Status: Chronic (10) DVT prophylaxis Current Visit: Yes Status: Acute Assessment and plan: anticoagulated with Eliquis - Subjective Interval history: Pt seen and examined at bedside. Remains somnolent, last administration of Ativan IV was yesterday evening. He is easily arousable and is AAO x 3 today, however mentation remains confused. continues to have icteric sclera, RUQ abd discomfort reported. - Constitutional Vitals: Temp Pulse Resp BP Pulse Ox 97.9 F 84 18 172/88 97 06/23/17 11:28 06/23/17 11:28 06/23/17 15:25 06/23/17 11:28 06/23/17 15:25 General appearance: Present: A&O X 3, no acute distress, obese, answers questions appropriately - Head Head exam: Present: atraumatic, normocephalic - Eye Eye exam: Present: conjuntiva pink, sclera anicteric - Respiratory Respiratory exam: Absent: respiratory distress, wheezes - Cardiovascular Cardiovascular exam: Present: RRR, +S1, +S2. Absent: diastolic murmur, gallop, rubs, systolic murmur - GI/Abdominal GI/Abdominal exam: Present: distended (obese), normal bowel sounds, soft, tenderness (RUQ tenderness), no peritoneal signs - Extremities Exam Extremities exam: Present: warm, radial pulses palpable and symmetrical. Absent : calf tenderness, tenderness - Neurological Exam Neurological exam: Present: alert, oriented X3 Internal Medicine: Result - Labs CBC & Chem 7: 06/23/17 04:05 06/23/17 04:05 Labs: Short CBC 06/23/17 Range/Units 04:05 WBC 8.5 (4.3-11.1) K/mcL Hgb 12.9 (12.9-16.9) g/dL Hct 38.4 (37.5-50.1) % Plt Count 141 (140-400) K/mcL Neutrophils # 6.0 (1.6-8.9) K/mcL BMP 06/23/17 04:05 Sodium 136 Potassium 3.5 Chloride 101 Carbon Dioxide 24 BUN 10 Creatinine 0.68 L Glucose 131 H Calcium 8.7 - ABG Interpretation ABG results: PT/INR, D-dimer PT 14.1 Seconds (9.4-12.1) H 06/21/17 03:26 - Impressions Impressions Liver Ultrasound 06/23/17 08:00 IMPRESSION: Diffuse echogenic liver which is compatible with hepatocellular disease which includes fatty infiltration in the differential diagnosis. No focal hepatic lesion is detected. Mildly dilated common bile duct measuring 8.3 mm. MRCP may be of value to evaluate for common bile duct stone if clinically warranted. D/ / 06/23/2017 09:23:11 Bertram Lizama MD / [employer]ley [employer] Interpreting Provider: Bertram Lizama MD Consult Discharge Plan - Plan Referrals: Sugar Diggs, APPLICATION DEVELOPER MANAGER [Primary Care Provider] -
[2017-06-23 17:37] LABS: Albumin 2.6 g/dL (3.5-5.0); Albumin/Globulin Ratio 0.6 (1.1-2.2); Bilirubin,Indirect 1.9 mg/dL (0.0-1.2); Bilirubin,Total 8.9 mg/dL (0.2-1.2); Globulin 4.5 g/dL (2.4-3.5); Total Protein 7.1 g/dL (6.0-8.3)
[2017-06-24] MEDS: Albuterol 2.5 MG/3 ML NEBULIZER IH SCH ×7 (00:05→23:44)
[2017-06-24 03:38] LABS: Hematocrit 39.8 % (37.5-50.1); Hemoglobin 14.1 g/dL (12.9-16.9); Mean Corpuscular HGB Conc 35.4 g/dL (31.6-35.5); Mean Corpuscular Volume 90.2 fL (83.0-100.0); Mean Platelet Volume 11.6 fL (9.4-12.4); Platelet Count 191 K/mcL (140-400); Red Blood Count 4.41 M/mcL (4.19-5.50)
[2017-06-24 04:06] LABS: Alanine Aminotransferase 78 Units/L (0-55); Albumin 2.6 g/dL (3.5-5.0); Albumin/Globulin Ratio 0.5 (1.1-2.2); Alkaline Phosphatase 326 Units/L (38-126); BUN/Creatinine Ratio 16 (6-26); Bilirubin,Total 9.9 mg/dL (0.2-1.2); Blood Urea Nitrogen 11 mg/dL (8-26); Calcium 9.2 mg/dL (8.6-10.8); Carbon Dioxide 22 mEq/L (19-29); Chloride 102 mEq/L (98-109); Glucose 116 mg/dL (70-99); Osmolality,Calculated 286 (280-300); Sodium 138 mEq/L (136-145); Total Protein 7.6 g/dL (6.0-8.3); eGFR For African Americans > 60 (> 60); eGFR For Non-African Americans > 60 (> 60)
[2017-06-24 04:16] LABS: Aspartate Amino Transferase 127 Units/L (5-34); Magnesium 1.7 mg/dL (1.6-2.6)
[2017-06-24 04:17] LABS: Potassium 4.5 mEq/L (3.5-4.5)
[2017-06-24 04:36] LABS: Monocytes # 1.7 K/mcL (0.0-1.3); Neutrophils # 4.3 K/mcL (1.6-8.9); Platelet Estimate Normal (Normal)
[2017-06-24] MEDS: *HR* HYDROcodone/Acet 7.5/325 mg TABLET PO PRN ×2 (05:45→20:56)
--- NOTE | 2017-06-24 08:50 | Internal Med Progress Note ---
Date of Encounter: 06/24/17 Time of Encounter: 08:47 - Assessment and plan (1) Acute pancreatitis Current Visit: Yes Status: Acute Assessment and plan: pt denies any painful distress and tolerating PO intake well However his LFT's are worsening especially alk phos and Direct bili concerning for Cholangitis vs intra hepatic steatosis and Necrotizing pancreatitis Reviewed MRCP showed mld intra hepatic biliary dilation and CBD @ 0.9 CM..No choledocholithiasis His Viral hepatitis panel negative Consulted GI for further eval Cont supportive care Initial Lipase and Ammonia levels are normal.. repeated them again cont empirical abx Rocephin ..will add flagyl Qualifiers: Pancreatitis type: alcohol induced Acute pancreatitis complication: no infection or necrosis Qualified Code(s): K85.20 - Alcohol induced acute pancreatitis without necrosis or infection (2) Acute metabolic encephalopathy Current Visit: Yes Status: Acute Assessment and plan: His delirium mostly due to alcoholic withdraw Now he is more alert, awake and O x3 (3) Alcohol withdrawal delirium Current Visit: Yes Status: Acute Assessment and plan: Improving Cont CIWA protocol switch to PO Ativan 1mg Q4hr PRN (4) Chronic alcohol dependence, continuous Current Visit: Yes Status: Acute Assessment and plan: Counseled to quit drinking cont thiamine, MVT and Folic acid (5) Paroxysmal atrial fibrillation Current Visit: Yes Status: Chronic Assessment and plan: continue Metoprolol for rate control Eliquis for anticoagulation tele monitoring (6) GERD (gastroesophageal reflux disease) Current Visit: Yes Status: Chronic Assessment and plan: on PPI Qualifiers: Esophagitis presence: without esophagitis Qualified Code(s): K21.9 - Gastro -esophageal reflux disease without esophagitis (7) Hyperbilirubinemia Current Visit: Yes Status: Acute (8) UTI (urinary tract infection) Current Visit: Yes Status: Acute Assessment and plan: UA - abnormal urine culture showed no growth on Abx Qualifiers: Urinary tract infection type: site unspecified Hematuria presence: without hematuria Qualified Code(s): N39.0 - Urinary tract infection, site not specified - Subjective Interval history: Mr. Pires is a 46 year old male with a history of alcohol abuse complicated by recurrent episodes of acute pancreatitis was brought in for altered mental status. Per patient he woke up confused with a fever and yellow eyes. Pt was admitted with severe acute pancreatitis and jaundice. Pt is able to tolerate PO intake ok now. Denied any CP / SOB. No nausea / vomiting. Still has epigastric and rito umbilical pain. - Constitutional Vitals: Temp Pulse Resp BP Pulse Ox 98.3 F 90 18 128/88 95 06/24/17 07:14 06/24/17 07:14 06/24/17 07:36 06/24/17 07:14 06/24/17 07:36 General appearance: Present: A&O X 3, no acute distress, obese, answers questions appropriately - Head Head exam: Present: atraumatic, normal inspection - Eye Eye exam: Present: scleral icterus - Neck Neck exam general surgery: Present: supple - Respiratory Respiratory exam: Present: CTAB. Absent: accessory muscle use, rales, rhonchi, wheezes - Cardiovascular Cardiovascular exam: Present: RRR, +S1, +S2. Absent: diastolic murmur, gallop, rubs, systolic murmur - GI/Abdominal GI/Abdominal exam: Present: normal bowel sounds, soft, tenderness (mild Epigastric), no peritoneal signs. Absent: guarding, rebound, rigid, splenomegaly - Extremities Exam Extremities exam: Present: pedal edema (trace). Absent: calf tenderness, tenderness - Neurological Exam Neurological exam: Present: alert, oriented X3 - Psychiatric Psychiatric exam: Present: normal affect, normal mood Internal Medicine: Result - Labs CBC & Chem 7: 06/24/17 02:55 06/24/17 02:55 Labs: Short CBC 06/24/17 Range/Units 02:55 WBC 7.0 (4.3-11.1) K/mcL Hgb 14.1 (12.9-16.9) g/dL Hct 39.8 (37.5-50.1) % Plt Count 191 (140-400) K/mcL Neutrophils # 4.3 (1.6-8.9) K/mcL BMP 06/24/17 02:55 Sodium 138 Potassium 4.5 D Chloride 102 Carbon Dioxide 22 BUN 11 Creatinine 0.69 L Glucose 116 H Calcium 9.2 Liver Function 06/23/17 06/24/17 Range/Units 17:05 02:55 Total Bilirubin 8.9 H 9.9 H (0.2-1.2) mg/dL Direct Bilirubin 7.0 H (0.0-0.5) mg/dL AST 110 H 127 H (5-34) Units/L ALT 63 H 78 H (0-55) Units/L Alkaline Phosphatase 268 H 326 H (38-126) Units/L Albumin 2.6 L 2.6 L (3.5-5.0) g/dL - ABG Interpretation ABG results: PT/INR, D-dimer PT 14.1 Seconds (9.4-12.1) H 06/21/17 03:26 - Impressions Impressions Hand X-Ray 06/23/17 00:00 IMPRESSION: 1. No acute osseous abnormality. 2. Metallic radiopaque foreign body projects over the dorsal soft tissues of the 2nd digit at the level of the proximal phalanx. D/ / Vernon Sanches MD / Vernon Sanches MD Interpreting Provider: Vernon Sanches MD Liver Ultrasound 06/23/17 08:00 IMPRESSION: Diffuse echogenic liver which is compatible with hepatocellular disease which includes fatty infiltration in the differential diagnosis. No focal hepatic lesion is detected. Mildly dilated common bile duct measuring 8.3 mm. MRCP may be of value to evaluate for common bile duct stone if clinically warranted. D/ : / 06/23/2017 09:23:11 Bertram Lizama MD / [employer] Interpreting Provider: Bertram Lizama MD Abdomen MRI 06/23/17 16:45 IMPRESSION: Again noted are findings consistent with acute pancreatitis. Pancreatic head and body appear edematous and somewhat enlarged. Ill-defined regions of more prominent signal within the pancreatic body and head. Evaluation limited without IV contrast. Recommend further evaluation with CT of the pancreas to assess for pancreatic necrosis. Ill-defined free fluid again noted about the pancreas, not substantially changed. Mild intrahepatic biliary dilatation and dilation of the common bile duct measuring up to 0.9 cm. No evidence of choledocholithiasis. There is fairly smooth focal narrowing of the distal common bile duct which may be related to prominent inflammatory change of the adjacent pancreas. Recommend follow-up once patient clinically improves to assess for underlying lesion. D/ / Myriam Dodge MD / Myriam Dodge MD Interpreting Provider: Myriam Dodge MD Consult Discharge Plan - Plan Referrals: Sugar Diggs, JENNIFER [Primary Care Provider] -
[2017-06-24] MEDS: Potassium Chloride Elixir 20 MEQ/15 ML UDC PO SCH ×3 (09:06→20:57)
[2017-06-24] MEDS: Thiamine (B-1) 100 MG TABLET PO SCH (09:06)
[2017-06-24] MEDS: Fluticasone Propionate Nasal 50 MCG/SPRAY BOTTLE NS SCH (09:06)
[2017-06-24] MEDS: Folic Acid 1 MG TABLET PO SCH (09:07)
[2017-06-24] MEDS: Loratadine 10 MG TABLET PO SCH (09:07)
[2017-06-24] MEDS: Lactulose Oral Soln 20 GM/30 ML UDC PO SCH ×2 (09:07→20:57)
[2017-06-24] MEDS: Diltiazem CD (24hr) 240 MG CAPSULE PO SCH (09:07)
[2017-06-24] MEDS: Furosemide 20 MG TABLET PO SCH ×2 (09:07→16:55)
[2017-06-24] MEDS: Magnesium Oxide 400 MG TABLET PO SCH (09:07)
[2017-06-24] MEDS: APIXABAN 5 MG TABLET PO SCH ×2 (09:07→20:56)
[2017-06-24] MEDS: Vitamin B Complex/Vit C/Vit E 1 EACH TABLET PO SCH (09:07)
[2017-06-24 10:10] LABS: Amylase 29 Units/L (25-125); Lactate Dehydrogenase 415 Units/L (159-327); Lipase 21 Units/L (8-78)
--- NOTE | 2017-06-24 10:44 | Gastroenterology Consult Note ---
<PressleyYohan arce Jered - Last Filed: 06/24/17 10:38> Date of Encounter: 06/24/17 Time of Encounter: 10:25 - Assessment and plan (1) Acute alcoholic hepatitis Current Visit: Yes Status: Acute Assessment and plan: Likely alcoholic hepatitis and not cholangitis. WBC normal. DF 21.7. Bili, AST, ALT, and alk phos worsening. Continue to monitor daily. Check PT/INR in AM. Check LDH, haptoglobin, and liver workup. Stop [place] due to acetaminophen. (2) Acute pancreatitis Current Visit: Yes Status: Acute Assessment and plan: Recommend changing diet to clear liquid diet and advance as tolerated. Start IV fluids at 75 ml/hr due to history of CHF. CXR negative, check BNP. EF 70% on . Qualifiers: Pancreatitis type: alcohol induced Acute pancreatitis complication: no infection or necrosis Qualified Code(s): K85.20 - Alcohol induced acute pancreatitis without necrosis or infection (3) Alcohol abuse Current Visit: Yes Status: Chronic Assessment and plan: Pt drinking 0.5 to 1 gallon of vodka daily. Encouraged patient to stop drinking. (4) Alcohol withdrawal Current Visit: No Status: Acute Qualifiers: Complication of substance-induced condition: with delirium Qualified Code(s ): F10.231 - Alcohol dependence with withdrawal delirium (5) GERD (gastroesophageal reflux disease) Current Visit: Yes Status: Chronic Assessment and plan: Continue PPI. Qualifiers: Esophagitis presence: esophagitis presence not specified Qualified Code(s) : K21.9 - Gastro-esophageal reflux disease without esophagitis - Time Spent With Patient Total time spent is greater than 50% in coordination of care (as documented) at patient's floor/unit and/or counseling patient: GI History of Present Illness - Data of Consult Patient: new to practice Consult date: 06/24/17 Requesting Physician: Jose Enrique Youssef MD - Consult Narrative Reason for consult: Elevated LFTs, pancreatitis History of present illness: Mr. Pires is a 46 year old male with PMHx of Afib, CHF, COPD, GERD, HLD, HTN, [place], and alcohol abuse complicated by recurrent episodes of acute pancreatitis was brought in for altered mental status. Per patient he woke up confused with a fever and yellow eyes. He presented with alcohol withdrawl and c/o with abdominal pain with more intensity across upper abdomen, nausea, and vomiting 1 week. He states he drinks 0.5 to 1 gallon of vodka daily. CT A/P shows hepatic steatosis, interstitial pancreatitis, inflammation around patient's duodenum. LFT's have worsened especially Alk Phos (up to 326 from 112 on admission) and direct bili (up to 7 on 06/23 from 4 on admission). MRCP showed mild intra hepatic biliary dilation and CBD at 0.9 cm, no choledocholithiasis. Hepatitis profile was negative. Pt states he ate eggs this AM, but states eating solid foods causing him abdominal pain. He reports he is tolerating fluids better than solids. Procedures: None NSAIDs: None Anticoagulation: Eliquis Past Med Surg Social Fam HX - Past Medical History Medical history: atrial fibrillation, CHF, COPD, GERD, hyperlipidemia, hypertension, myocardial infarction, valvular heart disease, other Psychiatric history: no psych history - Past Surgical History Surgical History: other (right arm surgery, left knee surgery, no history of abdominal surgery) - Social History Smoking Status: Current every day smoker Smokeless Tobacco Status: No (1 PPD) Alcohol use: heavy, recent Drug use: none - Family History Mother History Unknown: Yes Adopted: [place]: karma bernal Family Member Ethnicity: Non- Living Status: Age at : 55 Cause of : brain injury Hx Family Cardiac Disorders: Yes Hx Family Respiratory Disorders: Yes (COPD) Hx Family Cancer: Yes (heqart disease) Father Hx Family Cardiac Disorders: Yes - Gastrointestinal Gastrointestinal: Present: as per HPI - Constitutional Constitutional: as per HPI - EENT Eyes: as per HPI Ears: Present: as per HPI Nose, mouth and throat: Present: as per HPI - Cardiovascular Cardiovascular ROS: Present: as per HPI - Respiratory Respiratory IM: Present: as per HPI - Genitourinary Genitourinary: Absent: change in color, Urinary frequency - Neurological ROS Neurological GI: Present: as per HPI - Hematologic/Lymphatic Hematologic/Lymphatic pediatric: Present: as per HPI - Musculoskeletal Musculoskeletal ROS GI: Present: as per HPI - Integumentary Integumentary GI: Present: as per HPI - Psychiatric ROS Psychiatric GI: Present: as per HPI - Endocrine Endocrine IM: Present: as per HPI - Constitutional Vitals: Temp Pulse Resp BP Pulse Ox 98.3 F 90 18 128/88 95 06/24/17 07:14 06/24/17 07:14 06/24/17 07:36 06/24/17 07:14 06/24/17 07:36 General appearance: Present: cooperative, A&O X 3, no acute distress, answers questions appropriately - Head Head exam: Present: atraumatic, normocephalic - Eye Eye exam: Present: scleral icterus - ENT ENT exam: Present: mucous membranes dry - Neck Neck exam general surgery: Present: normal inspection, trachea midline - Respiratory Respiratory exam: Present: rhonchi (Bilateral) - Cardiovascular Cardiovascular exam: Present: RRR, +S1, +S2 - GI/Abdominal GI/Abdominal exam: Present: soft, tenderness (epigastric and LUQ), no peritoneal signs. Absent: distended, firm, guarding - Rectal Rectal exam: Present: deferred - Extremities Exam Extremities exam: Present: warm - Neurological Exam Neurological exam: Present: no focal deficits - Psychiatric Psychiatric exam: Present: normal affect, normal mood - Skin Skin exam: Present: dry, intact, warm. Absent: normal color (Jaundice) Results - Labs CBC & Chem 7: 06/24/17 02:55 06/24/17 02:55 Labs: Last Result Calcium 9.2 mg/dL (8.6-10.8) 06/24/17 02:55 Urine Opiates Screen Positive ng/mL (Niesqy=558) H 06/21/17 00:01 Entire Visit Hgb 14.1 g/dL (12.9-16.9) 06/24/17 02:55 Hct 39.8 % (37.5-50.1) 06/24/17 02:55 PT 14.1 Seconds (9.4-12.1) H 06/21/17 03:26 Total Bilirubin 9.9 mg/dL (0.2-1.2) H 06/24/17 02:55 AST 127 Units/L (5-34) H 06/24/17 02:55 ALT 78 Units/L (0-55) H 06/24/17 02:55 Ammonia 59 mcmol/L (18-72) 06/24/17 09:45 Amylase 29 Units/L (25-125) 06/24/17 09:45 Lipase 21 Units/L (8-78) 06/24/17 09:45 - ABG ABG results: PT/INR, D-dimer PT 14.1 Seconds (9.4-12.1) H 06/21/17 03:26 - Impressions Impressions Hand X-Ray 06/23/17 00:00 IMPRESSION: 1. No acute osseous abnormality. 2. Metallic radiopaque foreign body projects over the dorsal soft tissues of the 2nd digit at the level of the proximal phalanx. D/ / Vernon Sanches MD / Vernon Sanches MD Interpreting Provider: Vernon Sanches MD Liver Ultrasound 06/23/17 08:00 IMPRESSION: Diffuse echogenic liver which is compatible with hepatocellular disease which includes fatty infiltration in the differential diagnosis. No focal hepatic lesion is detected. Mildly dilated common bile duct measuring 8.3 mm. MRCP may be of value to evaluate for common bile duct stone if clinically warranted. D/ : / 06/23/2017 09:23:11 Bertram Lizama MD / Charley Power Interpreting Provider: Bertram Lizama MD Abdomen MRI 06/23/17 16:45 IMPRESSION: Again noted are findings consistent with acute pancreatitis. Pancreatic head and body appear edematous and somewhat enlarged. Ill-defined regions of more prominent signal within the pancreatic body and head. Evaluation limited without IV contrast. Recommend further evaluation with CT of the pancreas to assess for pancreatic necrosis. Ill-defined free fluid again noted about the pancreas, not substantially changed. Mild intrahepatic biliary dilatation and dilation of the common bile duct measuring up to 0.9 cm. No evidence of choledocholithiasis. There is fairly smooth focal narrowing of the distal common bile duct which may be related to prominent inflammatory change of the adjacent pancreas. Recommend follow-up once patient clinically improves to assess for underlying lesion. D/ / Myriam Dodge MD / Myriam Dodge MD Interpreting Provider: Myriam Dodge MD Chest X-Ray 06/24/17 09:42 IMPRESSION: No evidence for acute cardiopulmonary process. D/ / 06/24/2017 10:22:24 Moy Tom MD / yefri Interpreting Provider: Moy Tom MD Consult Discharge Plan - Plan Referrals: Sugar Diggs, [employer]CH[employer]IC [Primary Care Provider] - <Phillip Merazind - Last Filed: 06/25/17 11:58> Date of Encounter: 06/24/17 - Time Spent With Patient Total time spent is greater than 50% in coordination of care (as documented) at patient's floor/unit and/or counseling patient: GI History of Present Illness - Data of Consult Requesting Physician: Jose Enrique Youssef MD - Consult Narrative History of present illness: Mr. Pires is a 46 year old male - Constitutional Vitals: Temp Pulse Resp BP Pulse Ox 97.9 F 85 14 144/94 95 06/25/17 10:30 06/25/17 10:30 06/25/17 10:30 06/25/17 10:30 06/25/17 10:30 Results - Labs CBC & Chem 7: 06/25/17 06:09 06/25/17 06:09 Labs: Last Result Calcium 9.4 mg/dL (8.6-10.8) 06/25/17 06:09 Ferritin 1490 ng/ml (22-275) H 06/24/17 11:31 Urine Opiates Screen Positive ng/mL (Nsmjib=640) H 06/21/17 00:01 Entire Visit Hgb 13.8 g/dL (12.9-16.9) 06/25/17 06:09 Hct 41.1 % (37.5-50.1) 06/25/17 06:09 PT 14.3 Seconds (9.4-12.1) H 06/24/17 11:31 Ferritin 1490 ng/ml (22-275) H 06/24/17 11:31 Total Bilirubin 9.0 mg/dL (0.2-1.2) H 06/25/17 06:09 AST 107 Units/L (5-34) H 06/25/17 06:09 ALT 89 Units/L (0-55) H 06/25/17 06:09 Ammonia 59 mcmol/L (18-72) 06/24/17 09:45 Amylase 29 Units/L (25-125) 06/24/17 09:45 Lipase 21 Units/L (8-78) 06/24/17 09:45 - ABG ABG results: PT/INR, D-dimer PT 14.3 Seconds (9.4-12.1) H 06/24/17 11:31 - Impressions Impressions Chest X-Ray 06/24/17 09:42 IMPRESSION: No evidence for acute cardiopulmonary process. D/ / 06/24/2017 10:22:24 Moy Tom MD / earnold Interpreting Provider: Moy Tom MD - Attending Attestation Unfortunate 46 year old male with long continuing alcohol abuse. Agree with above and plan MRCP to better delineate the pancreas and hepatobiliary tree. I personally examined and interviewed Mr. Pires and reviewed his labs and scans.
[2017-06-24 12:16] LABS: INR 1.3; Prothrombin Time 14.3 Seconds (9.4-12.1)
[2017-06-24] MEDS: 0.9 % Sodium Chloride 1,000 ML IVC SCH (16:55)
[2017-06-25] MEDS: Nicotine 14 MG PATCH.TD24 TD SCH ×2 (00:21→08:29)
[2017-06-25] MEDS: Albuterol 2.5 MG/3 ML NEBULIZER IH SCH ×6 (04:33→23:27)
[2017-06-25 06:49] LABS: Hematocrit 41.1 % (37.5-50.1); Hemoglobin 13.8 g/dL (12.9-16.9); Mean Corpuscular HGB Conc 33.6 g/dL (31.6-35.5); Mean Corpuscular Hemoglobin 30.9 pg (28.0-33.3); Mean Corpuscular Volume 92.2 fL (83.0-100.0); Mean Platelet Volume 11.6 fL (9.4-12.4); Platelet Count 209 K/mcL (140-400); Red Blood Count 4.46 M/mcL (4.19-5.50); Red Cell Distribution Width 14.6 % (11.5-14.5)
[2017-06-25] MEDS: 0.9 % Sodium Chloride 1,000 ML IVC SCH ×2 (06:50→22:38)
[2017-06-25 07:01] LABS: Alanine Aminotransferase 89 Units/L (0-55); Albumin 2.6 g/dL (3.5-5.0); Albumin/Globulin Ratio 0.6 (1.1-2.2); Alkaline Phosphatase 352 Units/L (38-126); Aspartate Amino Transferase 107 Units/L (5-34); BUN/Creatinine Ratio 17 (6-26); Bilirubin,Direct 6.9 mg/dL (0.0-0.5); Blood Urea Nitrogen 13 mg/dL (8-26); Calcium 9.4 mg/dL (8.6-10.8); Carbon Dioxide 26 mEq/L (19-29); Chloride 102 mEq/L (98-109); Globulin 4.6 g/dL (2.4-3.5); Glucose 135 mg/dL (70-99); Magnesium 1.3 mg/dL (1.6-2.6); Osmolality,Calculated 286 (280-300); Potassium 3.7 mEq/L (3.5-4.5); Sodium 137 mEq/L (136-145); Total Protein 7.2 g/dL (6.0-8.3); eGFR For African Americans > 60 (> 60); eGFR For Non-African Americans > 60 (> 60)
[2017-06-25 07:58] LABS: Lymphocytes # 2.9 K/mcL (0.6-4.6); Monocytes # 0.8 K/mcL (0.0-1.3); Neutrophils # 2.3 K/mcL (1.6-8.9)
[2017-06-25 07:59] LABS: Platelet Estimate Normal (Normal); Reactive Lymphocytes Present (Not Present)
[2017-06-25] MEDS: Vitamin B Complex/Vit C/Vit E 1 EACH TABLET PO SCH (08:28)
[2017-06-25] MEDS: Folic Acid 1 MG TABLET PO SCH (08:28)
[2017-06-25] MEDS: Loratadine 10 MG TABLET PO SCH (08:28)
[2017-06-25] MEDS: Furosemide 20 MG TABLET PO SCH ×2 (08:28→17:17)
[2017-06-25] MEDS: Magnesium Oxide 400 MG TABLET PO SCH (08:28)
[2017-06-25] MEDS: Diltiazem CD (24hr) 240 MG CAPSULE PO SCH (08:29)
[2017-06-25] MEDS: Lactulose Oral Soln 20 GM/30 ML UDC PO SCH ×2 (08:29→19:55)
[2017-06-25] MEDS: APIXABAN 5 MG TABLET PO SCH ×2 (08:29→19:55)
[2017-06-25] MEDS: Thiamine (B-1) 100 MG TABLET PO SCH (08:29)
[2017-06-25] MEDS: Potassium Chloride Elixir 20 MEQ/15 ML UDC PO SCH ×2 (08:29→19:56)
[2017-06-25] MEDS: *HR* HYDROcodone/Acet 7.5/325 mg TABLET PO PRN ×2 (08:36→17:17)
[2017-06-25] MEDS: Fluticasone Propionate Nasal 50 MCG/SPRAY BOTTLE NS SCH (08:37)
--- NOTE | 2017-06-25 09:53 | Internal Med Progress Note ---
Date of Encounter: 06/25/17 Time of Encounter: 09:51 - Assessment and plan (1) Acute pancreatitis Current Visit: Yes Status: Acute Assessment and plan: pt denies any painful distress and tolerating clear liquid diet well His total bili started trendig down however alk phos still elevated his LDH, Serum ferritin also significantly elevated GI consulted - ordered extensive auto immune disease work up.. Reviewed MRCP showed mild intra hepatic biliary dilation and CBD @ 0.9 CM..No choledocholithiasis His Viral hepatitis panel negative Cont supportive care Reviewed Lipase and Ammonia levels are normal cont empirical abx Rocephin ..will add flagyl Qualifiers: Pancreatitis type: alcohol induced Acute pancreatitis complication: no infection or necrosis Qualified Code(s): K85.20 - Alcohol induced acute pancreatitis without necrosis or infection (2) Acute metabolic encephalopathy Current Visit: Yes Status: Acute Assessment and plan: His delirium mostly due to alcoholic withdraw Now he is more alert, awake and O x3 (3) Alcohol withdrawal delirium Current Visit: Yes Status: Acute Assessment and plan: Improving Cont CIWA protocol switch to PO Ativan 1mg Q4hr PRN (4) Chronic alcohol dependence, continuous Current Visit: Yes Status: Acute Assessment and plan: Counseled to quit drinking cont thiamine, MVT and Folic acid (5) Paroxysmal atrial fibrillation Current Visit: Yes Status: Chronic Assessment and plan: continue Metoprolol for rate control Eliquis for anticoagulation tele monitoring (6) GERD (gastroesophageal reflux disease) Current Visit: Yes Status: Chronic Assessment and plan: on PPI Qualifiers: Esophagitis presence: esophagitis presence not specified Qualified Code(s) : K21.9 - Gastro-esophageal reflux disease without esophagitis (7) Hyperbilirubinemia Current Visit: Yes Status: Acute (8) UTI (urinary tract infection) Current Visit: Yes Status: Acute Assessment and plan: UA - abnormal urine culture showed no growth on Abx Qualifiers: Urinary tract infection type: site unspecified Hematuria presence: without hematuria Qualified Code(s): N39.0 - Urinary tract infection, site not specified - Subjective Interval history: Mr. Pires is a 46 year old male with a history of alcohol abuse complicated by recurrent episodes of acute pancreatitis was brought in for altered mental status. Per patient he woke up confused with a fever and yellow eyes. Pt was admitted with severe acute pancreatitis and jaundice. Pt is able to tolerate clear liquid diet well now. Denied any CP / SOB. No nausea / vomiting. Still has mild epigastric and periumbilical pain. - Constitutional Vitals: Temp Pulse Resp BP Pulse Ox 97.7 F 80 18 157/99 97 06/25/17 06:49 06/25/17 06:49 06/25/17 08:00 06/25/17 06:49 06/25/17 08:00 General appearance: Present: A&O X 3, no acute distress, obese, answers questions appropriately - Head Head exam: Present: atraumatic, normal inspection - Respiratory Respiratory exam: Present: decreased breath sounds Additional comments: No wheezing / rales / no crackles - Cardiovascular Cardiovascular exam: Present: RRR, +S1, +S2. Absent: diastolic murmur, gallop, rubs, systolic murmur - GI/Abdominal GI/Abdominal exam: Present: soft, tenderness (mild discomfort in Epigastric and rito umbelical region..No guarding . no rigidity) - Extremities Exam Additional comments: trace edema..no tenderness - Neurological Exam Neurological exam: Present: alert, oriented X3 - Psychiatric Psychiatric exam: Present: normal affect, normal mood Internal Medicine: Result - Labs CBC & Chem 7: 06/25/17 06:09 06/25/17 06:09 Labs: Short CBC 06/25/17 Range/Units 06:09 WBC 6.0 (4.3-11.1) K/mcL Hgb 13.8 (12.9-16.9) g/dL Hct 41.1 (37.5-50.1) % Plt Count 209 (140-400) K/mcL Neutrophils # 2.3 (1.6-8.9) K/mcL BMP 06/25/17 06:09 Sodium 137 Potassium 3.7 Chloride 102 Carbon Dioxide 26 BUN 13 Creatinine 0.78 Glucose 135 H Calcium 9.4 Liver Function 06/25/17 Range/Units 06:09 Total Bilirubin 9.0 H (0.2-1.2) mg/dL Direct Bilirubin 6.9 H (0.0-0.5) mg/dL AST 107 H (5-34) Units/L ALT 89 H (0-55) Units/L Alkaline Phosphatase 352 H (38-126) Units/L Albumin 2.6 L (3.5-5.0) g/dL - ABG Interpretation ABG results: PT/INR, D-dimer PT 14.3 Seconds (9.4-12.1) H 06/24/17 11:31 - Impressions Impressions Liver Ultrasound 06/23/17 08:00 IMPRESSION: Diffuse echogenic liver which is compatible with hepatocellular disease which includes fatty infiltration in the differential diagnosis. No focal hepatic lesion is detected. Mildly dilated common bile duct measuring 8.3 mm. MRCP may be of value to evaluate for common bile duct stone if clinically warranted. D/ : / 06/23/2017 09:23:11 Bertram Lizama MD / Charley Power Interpreting Provider: Bertram Lizama MD Chest X-Ray 06/24/17 09:42 IMPRESSION: No evidence for acute cardiopulmonary process. D/ / 06/24/2017 10:22:24 Moy Tom MD / earhakan Interpreting Provider: Moy Tom MD Consult Discharge Plan - Plan Referrals: Sugar Diggs, BEE[employer] SELECTOR [Primary Care Provider] -
[2017-06-25] MEDS: Magnesium Sulfate 2 GM in D5% in Water 100 ML IVPB SCH ×2 (11:02→12:59)
[2017-06-25] MEDS: metroNIDAZOLE 500 MG TABLET PO SCH ×3 (11:03→19:55)
[2017-06-26] MEDS: 0.9 % Sodium Chloride 1,000 ML IVC SCH (01:13)
[2017-06-26] MEDS: Ondansetron 4 MG/2 ML VIAL IVP PRN (03:26)
[2017-06-26] MEDS: Albuterol 2.5 MG/3 ML NEBULIZER IH SCH ×6 (04:16→23:14)
[2017-06-26] MEDS: *HR* HYDROcodone/Acet 7.5/325 mg TABLET PO PRN (05:29)
[2017-06-26 06:11] LABS: Basophils # 0.1 K/mcL (0.0-0.2); Basophils % 0.8 %; Eosinophils # 0.2 K/mcL (0.0-0.6); Eosinophils % 2.7 %; Hematocrit 39.3 % (37.5-50.1); Hemoglobin 13.5 g/dL (12.9-16.9); Immature Granulocytes % 3.6 % (0-4); Lymphocytes # 1.1 K/mcL (0.6-4.6); Lymphocytes % 14.6 %; Mean Corpuscular HGB Conc 34.4 g/dL (31.6-35.5); Mean Corpuscular Hemoglobin 31.5 pg (28.0-33.3); Mean Corpuscular Volume 91.6 fL (83.0-100.0); Mean Platelet Volume 12.4 fL (9.4-12.4); Monocytes # 1.5 K/mcL (0.0-1.3); Monocytes % 19.1 %; Neutrophils # 4.6 K/mcL (1.6-8.9); Platelet Count 232 K/mcL (140-400); Red Blood Count 4.29 M/mcL (4.19-5.50); Red Cell Distribution Width 15.1 % (11.5-14.5); Segmented Neutrophils % 59.2 %
[2017-06-26 06:26] LABS: Alanine Aminotransferase 99 Units/L (0-55); Albumin 2.6 g/dL (3.5-5.0); Albumin/Globulin Ratio 0.6 (1.1-2.2); Alkaline Phosphatase 389 Units/L (38-126); Aspartate Amino Transferase 119 Units/L (5-34); BUN/Creatinine Ratio 15 (6-26); Bilirubin,Total 10.3 mg/dL (0.2-1.2); Blood Urea Nitrogen 12 mg/dL (8-26); Calcium 9.2 mg/dL (8.6-10.8); Carbon Dioxide 19 mEq/L (19-29); Chloride 106 mEq/L (98-109); Globulin 4.6 g/dL (2.4-3.5); Glucose 138 mg/dL (70-99); Magnesium 1.6 mg/dL (1.6-2.6); Osmolality,Calculated 284 (280-300); Potassium 4.6 mEq/L (3.5-4.5); Sodium 136 mEq/L (136-145); Total Protein 7.2 g/dL (6.0-8.3); eGFR For African Americans > 60 (> 60); eGFR For Non-African Americans > 60 (> 60)
[2017-06-26 06:39] LABS: Large Platelets Present (Not Present); Platelet Estimate Normal (Normal)
[2017-06-26 07:55] LABS: Alpha-1-Antitrypsin 258 mg/dL (90-200); Ceruloplasmin 30 mg/dL (17-54)
[2017-06-26 07:59] LABS: Myeloperoxidase Ab 3 AU/mL (0-19); Serine Protease-3 Antibody 1 AU/mL (0-19)
[2017-06-26] MEDS: Nicotine 14 MG PATCH.TD24 TD SCH (09:02)
[2017-06-26] MEDS: Diltiazem CD (24hr) 240 MG CAPSULE PO SCH (09:02)
[2017-06-26] MEDS: Loratadine 10 MG TABLET PO SCH (09:02)
[2017-06-26] MEDS: metroNIDAZOLE 500 MG TABLET PO SCH ×2 (09:02→12:15)
[2017-06-26] MEDS: APIXABAN 5 MG TABLET PO SCH ×2 (09:02→21:54)
[2017-06-26] MEDS: Thiamine (B-1) 100 MG TABLET PO SCH (09:02)
[2017-06-26] MEDS: Vitamin B Complex/Vit C/Vit E 1 EACH TABLET PO SCH (09:02)
[2017-06-26] MEDS: Lactulose Oral Soln 20 GM/30 ML UDC PO SCH ×2 (09:02→21:54)
[2017-06-26] MEDS: Folic Acid 1 MG TABLET PO SCH (09:03)
[2017-06-26] MEDS: Magnesium Oxide 400 MG TABLET PO SCH (09:03)
[2017-06-26] MEDS: Furosemide 20 MG TABLET PO SCH ×2 (09:03→15:39)
[2017-06-26] MEDS: Potassium Chloride Elixir 20 MEQ/15 ML UDC PO SCH (09:04)
[2017-06-26] MEDS: Fluticasone Propionate Nasal 50 MCG/SPRAY BOTTLE NS SCH (09:05)
[2017-06-26] MEDS ORDERED: Magnesium Sulfate 1 GM in D5% in Water 100 ML IVPB ONE (11:05)
--- NOTE | 2017-06-26 13:02 | Internal Med Progress Note ---
Date of Encounter: 06/26/17 Time of Encounter: 10:30 - Assessment and plan (1) Acute pancreatitis Current Visit: Yes Status: Acute Assessment and plan: He is tolerating soft diet well His total bili started going up again .. 9.0 --> 10.3 alk phos still elevated his LDH, Serum ferritin also significantly elevated GI consulted - ordered extensive auto immune disease work up.. Reviewed MRCP showed mild intra hepatic biliary dilation and CBD @ 0.9 CM..No choledocholithiasis His Viral hepatitis panel negative Cont supportive care Reviewed Lipase and Ammonia levels are normal It does not look like he does have any cholangitis will d/c all his abx for now and cont monitoring for now will talk to GI about further plan of care Qualifiers: Pancreatitis type: alcohol induced Acute pancreatitis complication: no infection or necrosis Qualified Code(s): K85.20 - Alcohol induced acute pancreatitis without necrosis or infection (2) Acute metabolic encephalopathy Current Visit: Yes Status: Acute Assessment and plan: His delirium mostly due to alcoholic withdraw Now he is more alert, awake and O x3 (3) Alcohol withdrawal delirium Current Visit: Yes Status: Acute Assessment and plan: Improving Cont CIWA protocol switch to PO Ativan 1mg Q4hr PRN (4) Chronic alcohol dependence, continuous Current Visit: Yes Status: Acute Assessment and plan: Counseled to quit drinking cont thiamine, MVT and Folic acid (5) Paroxysmal atrial fibrillation Current Visit: Yes Status: Chronic Assessment and plan: continue Metoprolol for rate control Eliquis for anticoagulation tele monitoring (6) GERD (gastroesophageal reflux disease) Current Visit: Yes Status: Chronic Assessment and plan: on PPI Qualifiers: Esophagitis presence: esophagitis presence not specified Qualified Code(s) : K21.9 - Gastro-esophageal reflux disease without esophagitis (7) Hyperbilirubinemia Current Visit: Yes Status: Acute (8) UTI (urinary tract infection) Current Visit: Yes Status: Acute Assessment and plan: UA - abnormal urine culture showed no growth d/c abx Qualifiers: Urinary tract infection type: site unspecified Hematuria presence: without hematuria Qualified Code(s): N39.0 - Urinary tract infection, site not specified - Subjective Interval history: Mr. Pires is a 46 year old male with a history of alcohol abuse complicated by recurrent episodes of acute pancreatitis was brought in for altered mental status. Per patient he woke up confused with a fever and yellow eyes. Pt was admitted with severe acute pancreatitis and jaundice. Pt is able to tolerate soft diet well now. Denied any CP / SOB. No nausea / vomiting. His abdominal pain also improved - Constitutional Vitals: Temp Pulse Resp BP Pulse Ox 97.9 F 88 16 145/98 98 06/26/17 11:14 06/26/17 11:14 06/26/17 11:34 06/26/17 11:34 06/26/17 11:34 General appearance: Present: A&O X 3, no acute distress, obese, answers questions appropriately - Head Head exam: Present: atraumatic, normal inspection - Eye Eye exam: Present: scleral icterus - Neck Neck exam general surgery: Present: supple - Respiratory Respiratory exam: Present: decreased breath sounds, wheezes (mild). Absent: rales, respiratory distress, rhonchi - Cardiovascular Cardiovascular exam: Present: RRR, +S1, +S2. Absent: systolic murmur - GI/Abdominal GI/Abdominal exam: Present: normal bowel sounds, soft. Absent: rebound, rigid, tenderness - Extremities Exam Extremities exam: Present: pedal edema (trace). Absent: calf tenderness, tenderness - Back Exam Back exam: Absent: CVA tenderness (L), CVA tenderness (R) - Neurological Exam Neurological exam: Present: alert, oriented X3 - Psychiatric Psychiatric exam: Present: normal affect, normal mood Internal Medicine: Result - Labs CBC & Chem 7: 06/26/17 05:06 06/26/17 05:06 Labs: Short CBC 06/26/17 Range/Units 05:06 WBC 7.8 (4.3-11.1) K/mcL Hgb 13.5 (12.9-16.9) g/dL Hct 39.3 (37.5-50.1) % Plt Count 232 (140-400) K/mcL Neutrophils # 4.6 (1.6-8.9) K/mcL BMP 06/26/17 05:06 Sodium 136 Potassium 4.6 H Chloride 106 Carbon Dioxide 19 BUN 12 Creatinine 0.79 Glucose 138 H Calcium 9.2 Liver Function 06/26/17 Range/Units 05:06 Total Bilirubin 10.3 H (0.2-1.2) mg/dL AST 119 H (5-34) Units/L ALT 99 H (0-55) Units/L Alkaline Phosphatase 389 H (38-126) Units/L Albumin 2.6 L (3.5-5.0) g/dL - ABG Interpretation ABG results: PT/INR, D-dimer PT 14.3 Seconds (9.4-12.1) H 06/24/17 11:31 Consult Discharge Plan - Plan Referrals: Dwight Meraz MD [Partnered Physician] - (Web Request entered, office will call with date and time of appt. Thank you) Sugar Diggs, BASKET FILLER [Primary Care Provider] -
[2017-06-26 14:44] LABS: ANA IgG by ELISA NONE DETECTED (None Detected); F-Actin (sm muscle) Ab IgG 10 Units (0-19)
[2017-06-26] MEDS: *HR* LORazepam 1 MG TABLET PO PRN ×2 (15:19→20:08)
[2017-06-26] MEDS ORDERED: OxyCODONE CONC 5 MG/0.25 ML ORAL.SYG PO PRN (15:51)
[2017-06-26] MEDS: *HR* OxyCODONE Immed Rel 5 MG TABLET PO PRN (23:19)
[2017-06-27] MEDS: Albuterol 2.5 MG/3 ML NEBULIZER IH SCH ×5 (03:54→20:00)
[2017-06-27 05:05] LABS: Basophils # 0.1 K/mcL (0.0-0.2); Basophils % 0.7 %; Eosinophils # 0.3 K/mcL (0.0-0.6); Eosinophils % 3.3 %; Hematocrit 41.2 % (37.5-50.1); Hemoglobin 13.6 g/dL (12.9-16.9); Immature Granulocytes % 2.1 % (0-4); Lymphocytes # 1.2 K/mcL (0.6-4.6); Lymphocytes % 15.3 %; Mean Corpuscular Hemoglobin 30.7 pg (28.0-33.3); Mean Platelet Volume 12.2 fL (9.4-12.4); Monocytes # 1.2 K/mcL (0.0-1.3); Monocytes % 15.5 %; Neutrophils # 4.8 K/mcL (1.6-8.9); Platelet Count 261 K/mcL (140-400); Red Blood Count 4.43 M/mcL (4.19-5.50); Red Cell Distribution Width 15.2 % (11.5-14.5); Segmented Neutrophils % 63.1 %
[2017-06-27 05:22] LABS: Alanine Aminotransferase 106 Units/L (0-55); Albumin 2.7 g/dL (3.5-5.0); Albumin/Globulin Ratio 0.6 (1.1-2.2); Alkaline Phosphatase 401 Units/L (38-126); BUN/Creatinine Ratio 12 (6-26); Blood Urea Nitrogen 9 mg/dL (8-26); Calcium 9.5 mg/dL (8.6-10.8); Carbon Dioxide 22 mEq/L (19-29); Chloride 103 mEq/L (98-109); Globulin 4.8 g/dL (2.4-3.5); Glucose 185 mg/dL (70-99); Osmolality,Calculated 281 (280-300); Potassium 4.2 mEq/L (3.5-4.5); Sodium 134 mEq/L (136-145); Total Protein 7.5 g/dL (6.0-8.3); eGFR For African Americans > 60 (> 60); eGFR For Non-African Americans > 60 (> 60)
[2017-06-27 05:26] LABS: Aspartate Amino Transferase 109 Units/L (5-34); Magnesium 1.8 mg/dL (1.6-2.6)
[2017-06-27 05:27] LABS: Bilirubin,Total 11.8 mg/dL (0.2-1.2)
[2017-06-27] MEDS: Fluticasone Propionate Nasal 50 MCG/SPRAY BOTTLE NS SCH (09:24)
[2017-06-27] MEDS: Furosemide 20 MG TABLET PO SCH ×2 (09:31→17:56)
[2017-06-27] MEDS: Vitamin B Complex/Vit C/Vit E 1 EACH TABLET PO SCH (09:31)
[2017-06-27] MEDS: Diltiazem CD (24hr) 240 MG CAPSULE PO SCH (09:31)
[2017-06-27] MEDS: *HR* OxyCODONE Immed Rel 5 MG TABLET PO PRN ×3 (09:31→23:45)
[2017-06-27] MEDS: APIXABAN 5 MG TABLET PO SCH ×2 (09:31→20:48)
[2017-06-27] MEDS: Thiamine (B-1) 100 MG TABLET PO SCH (09:32)
[2017-06-27] MEDS: Loratadine 10 MG TABLET PO SCH (09:32)
[2017-06-27] MEDS: Folic Acid 1 MG TABLET PO SCH (09:32)
[2017-06-27] MEDS: Magnesium Oxide 400 MG TABLET PO SCH (09:32)
[2017-06-27] MEDS: Nicotine 14 MG PATCH.TD24 TD SCH (09:36)
[2017-06-27] MEDS: Lactulose Oral Soln 20 GM/30 ML UDC PO SCH ×2 (09:38→20:47)
--- NOTE | 2017-06-27 17:29 | Internal Med Progress Note ---
Date of Encounter: 06/27/17 Time of Encounter: 17:25 - Assessment and plan (1) Acute pancreatitis Current Visit: Yes Status: Acute Assessment and plan: He is tolerating soft diet well His total bili started going up again .. 9.0 -> 10.3 ->11.8 alk phos still elevated @ 401 his LDH, Serum ferritin also significantly elevated GI consulted - ordered extensive auto immune disease work up.. Reviewed MRCP showed mild intra hepatic biliary dilation and CBD @ 0.9 CM..No choledocholithiasis His Viral hepatitis panel negative Clinically he looks better.. However his Bili and Alk phos keep worsening Spoke to GI -- ordered hemochrmoatosis work up also will get an U/S of Abd now Cont supportive care It does not look like he does have any cholangitis off the abx since 06/26/17 and cont monitoring for now Qualifiers: Pancreatitis type: alcohol induced Acute pancreatitis complication: no infection or necrosis Qualified Code(s): K85.20 - Alcohol induced acute pancreatitis without necrosis or infection (2) Acute metabolic encephalopathy Current Visit: Yes Status: Acute Assessment and plan: His delirium mostly due to alcoholic withdraw resolved Now he is more alert, awake and O x3 (3) Alcohol withdrawal delirium Current Visit: Yes Status: Acute Assessment and plan: resolved d/c CIWA protocol (4) Chronic alcohol dependence, continuous Current Visit: Yes Status: Acute Assessment and plan: Counseled to quit drinking cont thiamine, MVT and Folic acid (5) Paroxysmal atrial fibrillation Current Visit: Yes Status: Chronic Assessment and plan: continue Metoprolol for rate control Eliquis for anticoagulation tele monitoring (6) GERD (gastroesophageal reflux disease) Current Visit: Yes Status: Chronic Assessment and plan: on PPI Qualifiers: Esophagitis presence: esophagitis presence not specified Qualified Code(s) : K21.9 - Gastro-esophageal reflux disease without esophagitis (7) Hyperbilirubinemia Current Visit: Yes Status: Acute (8) UTI (urinary tract infection) Current Visit: Yes Status: Acute Assessment and plan: UA - abnormal urine culture showed no growth d/c abx Qualifiers: Urinary tract infection type: site unspecified Hematuria presence: without hematuria Qualified Code(s): N39.0 - Urinary tract infection, site not specified - Subjective Interval history: Mr. Pires is a 46 year old male with a history of alcohol abuse complicated by recurrent episodes of acute pancreatitis was brought in for altered mental status. Per patient he woke up confused with a fever and yellow eyes. Pt was admitted with severe acute pancreatitis and jaundice. Pt is able to tolerate soft diet well now. Denied any CP / SOB. No nausea / vomiting. His abdominal pain also improved.. No complainants. Clinically he looks better today. - Constitutional Vitals: Temp Pulse Resp BP Pulse Ox 97.4 F L 79 18 143/95 96 06/27/17 14:39 06/27/17 14:39 06/27/17 14:39 06/27/17 14:39 06/27/17 14:39 General appearance: Present: A&O X 3, no acute distress, obese, answers questions appropriately - Head Head exam: Present: atraumatic, normal inspection - Eye Eye exam: Present: scleral icterus - Neck Neck exam general surgery: Present: supple - Respiratory Respiratory exam: Present: decreased breath sounds. Absent: accessory muscle use, rales, rhonchi, wheezes - Cardiovascular Cardiovascular exam: Present: RRR, +S1, +S2. Absent: diastolic murmur, gallop, rubs, systolic murmur - GI/Abdominal GI/Abdominal exam: Present: normal bowel sounds, soft. Absent: rebound, rigid, tenderness - Extremities Exam Extremities exam: Absent: calf tenderness, pedal edema, tenderness - Neurological Exam Neurological exam: Present: alert, oriented X3 - Psychiatric Psychiatric exam: Present: normal affect, normal mood Internal Medicine: Result - Labs CBC & Chem 7: 06/27/17 04:27 06/27/17 04:27 Labs: Short CBC 06/27/17 Range/Units 04:27 WBC 7.7 (4.3-11.1) K/mcL Hgb 13.6 (12.9-16.9) g/dL Hct 41.2 (37.5-50.1) % Plt Count 261 (140-400) K/mcL Neutrophils # 4.8 (1.6-8.9) K/mcL BMP 06/27/17 04:27 Sodium 134 L Potassium 4.2 Chloride 103 Carbon Dioxide 22 BUN 9 Creatinine 0.74 Glucose 185 H Calcium 9.5 Liver Function 06/27/17 Range/Units 04:27 Total Bilirubin 11.8 H (0.2-1.2) mg/dL Direct Bilirubin 8.0 H (0.0-0.5) mg/dL AST 109 H (5-34) Units/L ALT 106 H (0-55) Units/L Alkaline Phosphatase 401 H (38-126) Units/L Albumin 2.7 L (3.5-5.0) g/dL - ABG Interpretation ABG results: PT/INR, D-dimer PT 14.3 Seconds (9.4-12.1) H 06/24/17 11:31 Consult Discharge Plan - Plan Referrals: Dwight Meraz MD [Partnered Physician] - (Web Request entered, office will call with date and time of appt. Thank you) Sugar Diggs, JENNIFER [Primary Care Provider] -
[2017-06-28] MEDS: Albuterol 2.5 MG/3 ML NEBULIZER IH SCH ×4 (00:50→10:32)
[2017-06-28 04:37] LABS: Basophils # 0.1 K/mcL (0.0-0.2); Basophils % 0.9 %; Eosinophils # 0.3 K/mcL (0.0-0.6); Eosinophils % 2.9 %; Hematocrit 40.4 % (37.5-50.1); Hemoglobin 13.3 g/dL (12.9-16.9); Lymphocytes # 1.5 K/mcL (0.6-4.6); Lymphocytes % 16.4 %; Mean Corpuscular HGB Conc 32.9 g/dL (31.6-35.5); Mean Corpuscular Hemoglobin 30.6 pg (28.0-33.3); Mean Corpuscular Volume 92.9 fL (83.0-100.0); Mean Platelet Volume 11.4 fL (9.4-12.4); Monocytes # 1.2 K/mcL (0.0-1.3); Monocytes % 13.5 %; Neutrophils # 5.8 K/mcL (1.6-8.9); Platelet Count 265 K/mcL (140-400); Red Blood Count 4.35 M/mcL (4.19-5.50); Red Cell Distribution Width 15.1 % (11.5-14.5); Segmented Neutrophils % 64.3 %
[2017-06-28 04:44] LABS: INR 1.3; Prothrombin Time 13.6 Seconds (9.4-12.1)
[2017-06-28 04:52] LABS: Alanine Aminotransferase 110 Units/L (0-55); Albumin 2.7 g/dL (3.5-5.0); Albumin/Globulin Ratio 0.6 (1.1-2.2); Alkaline Phosphatase 417 Units/L (38-126); Aspartate Amino Transferase 109 Units/L (5-34); BUN/Creatinine Ratio 13 (6-26); Bilirubin,Total 11.4 mg/dL (0.2-1.2); Blood Urea Nitrogen 11 mg/dL (8-26); Calcium 9.5 mg/dL (8.6-10.8); Carbon Dioxide 23 mEq/L (19-29); Chloride 100 mEq/L (98-109); Globulin 4.7 g/dL (2.4-3.5); Glucose 150 mg/dL (70-99); Magnesium 1.3 mg/dL (1.6-2.6); Osmolality,Calculated 278 (280-300); Potassium 4.1 mEq/L (3.5-4.5); Sodium 133 mEq/L (136-145); Total Protein 7.4 g/dL (6.0-8.3); eGFR For African Americans > 60 (> 60); eGFR For Non-African Americans > 60 (> 60)
[2017-06-28] MEDS: Magnesium Oxide 400 MG TABLET PO SCH ×2 (09:52→20:36)
[2017-06-28] MEDS: Furosemide 20 MG TABLET PO SCH ×2 (09:52→18:33)
[2017-06-28] MEDS: Lactulose Oral Soln 20 GM/30 ML UDC PO SCH ×2 (09:52→20:37)
[2017-06-28] MEDS: Nicotine 14 MG PATCH.TD24 TD SCH (09:52)
[2017-06-28] MEDS: Diltiazem CD (24hr) 240 MG CAPSULE PO SCH (09:53)
[2017-06-28] MEDS: Vitamin B Complex/Vit C/Vit E 1 EACH TABLET PO SCH (09:53)
[2017-06-28] MEDS: Loratadine 10 MG TABLET PO SCH (09:53)
[2017-06-28] MEDS: APIXABAN 5 MG TABLET PO SCH ×2 (09:53→20:36)
[2017-06-28] MEDS: Folic Acid 1 MG TABLET PO SCH (09:53)
[2017-06-28] MEDS: Thiamine (B-1) 100 MG TABLET PO SCH (09:53)
[2017-06-28] MEDS: *HR* OxyCODONE Immed Rel 5 MG TABLET PO PRN ×3 (09:53→23:35)
[2017-06-28] MEDS: Fluticasone Propionate Nasal 50 MCG/SPRAY BOTTLE NS SCH (09:54)
[2017-06-28] MEDS ORDERED: Magnesium Sulfate 2 GM in D5% in Water 100 ML IVPB ONE (10:42)
--- NOTE | 2017-06-28 10:56 | Internal Med Progress Note ---
Date of Encounter: 06/28/17 Time of Encounter: 10:54 - Assessment and plan (1) Hyperbilirubinemia Current Visit: Yes Status: Acute Assessment and plan: He is tolerating soft diet well His total bili started trending down slowly today .. 9.0 -> 10.3 ->11.8 ->11.4 alk phos still elevated @ 417 his LDH, Serum ferritin also significantly elevated GI consulted - ordered extensive auto immune disease work up and Hemochromatosis work up Repeat U/S of Liver howed CBD dilated at 1.2 CM and Sludge in GB.. Will talk to GI Currently Clinically he looks better. MRCP showed mild intra hepatic biliary dilation and CBD @ 0.9 CM..No choledocholithiasis His Viral hepatitis panel negative Cont supportive care It does not look like he does have any cholangitis off the abx since 06/26/17 and cont monitoring for now (2) Acute pancreatitis Current Visit: Yes Status: Acute Assessment and plan: He is tolerating soft diet well normal lipase Cont supportive care It does not look like he does have any cholangitis off the abx since 06/26/17 cont monitoring for now Qualifiers: Pancreatitis type: alcohol induced Acute pancreatitis complication: no infection or necrosis Qualified Code(s): K85.20 - Alcohol induced acute pancreatitis without necrosis or infection (3) Acute metabolic encephalopathy Current Visit: Yes Status: Acute Assessment and plan: His delirium mostly due to alcoholic withdraw resolved Now he is more alert, awake and O x3 (4) Alcohol withdrawal delirium Current Visit: Yes Status: Acute Assessment and plan: resolved d/c CIWA protocol (5) Chronic alcohol dependence, continuous Current Visit: Yes Status: Acute Assessment and plan: Counseled to quit drinking cont thiamine, MVT and Folic acid (6) Paroxysmal atrial fibrillation Current Visit: Yes Status: Chronic Assessment and plan: continue Metoprolol for rate control Eliquis for anticoagulation tele monitoring (7) GERD (gastroesophageal reflux disease) Current Visit: Yes Status: Chronic Assessment and plan: on PPI Qualifiers: Esophagitis presence: esophagitis presence not specified Qualified Code(s) : K21.9 - Gastro-esophageal reflux disease without esophagitis (8) UTI (urinary tract infection) Current Visit: Yes Status: Ruled-out Assessment and plan: UA - abnormal urine culture showed no growth d/c abx Qualifiers: Urinary tract infection type: site unspecified Hematuria presence: without hematuria Qualified Code(s): N39.0 - Urinary tract infection, site not specified - Subjective Interval history: Mr. Pires is a 46 year old male with a history of alcohol abuse complicated by recurrent episodes of acute pancreatitis was brought in for altered mental status. Per patient he woke up confused with a fever and yellow eyes. Pt was admitted with severe acute pancreatitis and jaundice. Pt is able to tolerate diet well now. Denied any CP / SOB. No nausea / vomiting. His abdominal pain also improved.. No complainants. Clinically he looks better today. - Constitutional Vitals: Temp Pulse Resp BP Pulse Ox 98.0 F 73 16 144/94 96 06/28/17 10:32 06/28/17 10:32 06/28/17 10:32 06/28/17 10:32 06/28/17 10:32 General appearance: Present: A&O X 3, no acute distress, obese, answers questions appropriately - Head Head exam: Present: atraumatic, normal inspection - Eye Eye exam: Present: scleral icterus - Respiratory Respiratory exam: Present: decreased breath sounds. Absent: rales, respiratory distress, rhonchi, wheezes - Cardiovascular Cardiovascular exam: Present: RRR, +S1, +S2. Absent: systolic murmur - GI/Abdominal GI/Abdominal exam: Present: normal bowel sounds, soft. Absent: pulsatile mass, rebound, rigid, tenderness - Extremities Exam Extremities exam: Absent: calf tenderness, pedal edema, tenderness - Back Exam Back exam: Absent: CVA tenderness (L), CVA tenderness (R) - Neurological Exam Neurological exam: Present: alert, oriented X3 - Psychiatric Psychiatric exam: Present: normal affect, normal mood Internal Medicine: Result - Labs CBC & Chem 7: 06/28/17 04:28 06/28/17 04:28 Labs: Short CBC 06/28/17 Range/Units 04:28 WBC 9.0 (4.3-11.1) K/mcL Hgb 13.3 (12.9-16.9) g/dL Hct 40.4 (37.5-50.1) % Plt Count 265 (140-400) K/mcL Neutrophils # 5.8 (1.6-8.9) K/mcL BMP 06/28/17 04:28 Sodium 133 L Potassium 4.1 Chloride 100 Carbon Dioxide 23 BUN 11 Creatinine 0.84 Glucose 150 H Calcium 9.5 Liver Function 06/28/17 Range/Units 04:28 Total Bilirubin 11.4 H (0.2-1.2) mg/dL AST 109 H (5-34) Units/L ALT 110 H (0-55) Units/L Alkaline Phosphatase 417 H (38-126) Units/L Albumin 2.7 L (3.5-5.0) g/dL - ABG Interpretation ABG results: PT/INR, D-dimer PT 13.6 Seconds (9.4-12.1) H 06/28/17 04:28 - Impressions Impressions Liver Ultrasound 06/28/17 08:30 IMPRESSION: Fatty liver. Mildly distended common bile duct measuring 1.3 cm but no evidence of intrahepatic biliary ductal dilatation. Small amount of sludge in the gallbladder. D/ / 06/28/2017 10:00:53 [facility] Interpreting Provider: Anton Driscoll MD Consult Discharge Plan - Plan Referrals: Dwight Meraz MD [Partnered Physician] - (Web Request entered, office will call with date and time of appt. Thank you) Sugar Diggs, JENNIFER [Primary Care Provider] -
[2017-06-29 03:23] LABS: Alanine Aminotransferase 121 Units/L (0-55); Albumin 2.7 g/dL (3.5-5.0); Albumin/Globulin Ratio 0.6 (1.1-2.2); Alkaline Phosphatase 439 Units/L (38-126); Aspartate Amino Transferase 114 Units/L (5-34); BUN/Creatinine Ratio 9 (6-26); Bilirubin,Total 8.5 mg/dL (0.2-1.2); Blood Urea Nitrogen 9 mg/dL (8-26); Calcium 9.6 mg/dL (8.6-10.8); Carbon Dioxide 24 mEq/L (19-29); Chloride 99 mEq/L (98-109); Globulin 4.7 g/dL (2.4-3.5); Glucose 256 mg/dL (70-99); Magnesium 1.6 mg/dL (1.6-2.6); Osmolality,Calculated 283 (280-300); Potassium 4.3 mEq/L (3.5-4.5); Sodium 133 mEq/L (136-145); Total Protein 7.4 g/dL (6.0-8.3); eGFR For African Americans > 60 (> 60); eGFR For Non-African Americans > 60 (> 60)
[2017-06-29] MEDS: Magnesium Oxide 400 MG TABLET PO SCH ×2 (08:20→20:01)
[2017-06-29] MEDS: Diltiazem CD (24hr) 240 MG CAPSULE PO SCH (08:20)
[2017-06-29] MEDS: Lactulose Oral Soln 20 GM/30 ML UDC PO SCH ×2 (08:20→20:01)
[2017-06-29] MEDS: Thiamine (B-1) 100 MG TABLET PO SCH (08:20)
[2017-06-29] MEDS: Vitamin B Complex/Vit C/Vit E 1 EACH TABLET PO SCH (08:20)
[2017-06-29] MEDS: Fluticasone Propionate Nasal 50 MCG/SPRAY BOTTLE NS SCH (08:21)
[2017-06-29] MEDS: Furosemide 20 MG TABLET PO SCH ×2 (08:21→18:02)
[2017-06-29] MEDS: Nicotine 14 MG PATCH.TD24 TD SCH (08:21)
[2017-06-29] MEDS: Loratadine 10 MG TABLET PO SCH (08:21)
[2017-06-29] MEDS: APIXABAN 5 MG TABLET PO SCH ×2 (08:21→20:01)
[2017-06-29] MEDS: Folic Acid 1 MG TABLET PO SCH (08:21)
[2017-06-29] MEDS: *HR* OxyCODONE Immed Rel 5 MG TABLET PO PRN ×2 (08:37→18:02)
--- NOTE | 2017-06-29 13:39 | Internal Med Progress Note ---
Date of Encounter: 06/29/17 Time of Encounter: 10:30 - Assessment and plan (1) Hyperbilirubinemia Current Visit: Yes Status: Acute Assessment and plan: He is tolerating soft diet well His total bili started trending down slowly today .. 9.0 -> 10.3 ->11.8 ->11.4 -> 8.5 alk phos still elevated @ 439 his LDH, Serum ferritin also significantly elevated GI consulted - ordered extensive auto immune disease work up and Hemochromatosis work up Repeat U/S of Liver showed CBD dilated at 1.2 CM and Sludge in GB.. Will talk to GI Currently Clinically he looks better. MRCP showed mild intra hepatic biliary dilation and CBD @ 0.9 CM..No choledocholithiasis His Viral hepatitis panel negative Cont supportive care and cont monitoring for now (2) Acute pancreatitis Current Visit: Yes Status: Acute Assessment and plan: He is tolerating soft diet well normal lipase Cont supportive care It does not look like he does have any cholangitis off the abx since 06/26/17 cont monitoring for now Qualifiers: Pancreatitis type: alcohol induced Acute pancreatitis complication: no infection or necrosis Qualified Code(s): K85.20 - Alcohol induced acute pancreatitis without necrosis or infection (3) Acute metabolic encephalopathy Current Visit: Yes Status: Acute Assessment and plan: His delirium mostly due to alcoholic withdraw resolved Now he is more alert, awake and O x3 (4) Alcohol withdrawal delirium Current Visit: Yes Status: Acute Assessment and plan: resolved d/c CIWA protocol (5) Chronic alcohol dependence, continuous Current Visit: Yes Status: Acute Assessment and plan: Counseled to quit drinking cont thiamine, MVT and Folic acid (6) Paroxysmal atrial fibrillation Current Visit: Yes Status: Chronic Assessment and plan: continue Metoprolol for rate control Eliquis for anticoagulation tele monitoring (7) GERD (gastroesophageal reflux disease) Current Visit: Yes Status: Chronic Assessment and plan: on PPI Qualifiers: Esophagitis presence: esophagitis presence not specified Qualified Code(s) : K21.9 - Gastro-esophageal reflux disease without esophagitis (8) UTI (urinary tract infection) Current Visit: Yes Status: Ruled-out Assessment and plan: UA - abnormal urine culture showed no growth d/c abx Qualifiers: Urinary tract infection type: site unspecified Hematuria presence: without hematuria Qualified Code(s): N39.0 - Urinary tract infection, site not specified - Subjective Interval history: Mr. Pires is a 46 year old male with a history of alcohol abuse complicated by recurrent episodes of acute pancreatitis was brought in for altered mental status. Per patient he woke up confused with a fever and yellow eyes. Pt was admitted with severe acute pancreatitis and jaundice. Pt is able to tolerate diet well now. Denied any CP / SOB. No nausea / vomiting. His abdominal pain also improved.. No complainants. Clinically he looks better today. - Constitutional Vitals: Temp Pulse Resp BP Pulse Ox 98.0 F 74 14 124/85 96 06/29/17 10:53 06/29/17 10:53 06/29/17 10:53 06/29/17 10:53 06/29/17 10:53 General appearance: Present: A&O X 3, no acute distress, obese, answers questions appropriately - Head Head exam: Present: atraumatic, normal inspection - Respiratory Respiratory exam: Present: decreased breath sounds. Absent: rales, respiratory distress, rhonchi, wheezes - Cardiovascular Cardiovascular exam: Present: RRR, +S1, +S2. Absent: systolic murmur - GI/Abdominal GI/Abdominal exam: Present: normal bowel sounds, soft. Absent: rebound, rigid, tenderness, no peritoneal signs - Extremities Exam Extremities exam: Absent: calf tenderness, pedal edema, tenderness - Back Exam Back exam: Absent: CVA tenderness (L), CVA tenderness (R) - Neurological Exam Neurological exam: Present: alert, normal gait - Psychiatric Psychiatric exam: Present: normal affect, normal mood Internal Medicine: Result - Labs CBC & Chem 7: 06/28/17 04:28 06/29/17 02:59 Labs: BMP 06/29/17 02:59 Sodium 133 L Potassium 4.3 Chloride 99 Carbon Dioxide 24 BUN 9 Creatinine 0.99 Glucose 256 H Calcium 9.6 Liver Function 06/29/17 Range/Units 02:59 Total Bilirubin 8.5 H (0.2-1.2) mg/dL AST 114 H (5-34) Units/L ALT 121 H (0-55) Units/L Alkaline Phosphatase 439 H (38-126) Units/L Albumin 2.7 L (3.5-5.0) g/dL - ABG Interpretation ABG results: PT/INR, D-dimer PT 13.6 Seconds (9.4-12.1) H 06/28/17 04:28 Consult Discharge Plan - Plan Referrals: Dwight Meraz MD [Partnered Physician] - (Web Request entered, office will call with date and time of appt. Thank you) Sugar Diggs, [employer]INE OPERATOR [Primary Care Provider] -
[2017-06-30] MEDS: *HR* OxyCODONE Immed Rel 5 MG TABLET PO PRN ×2 (00:11→07:50)
[2017-06-30 07:11] VITALS: BP 136/77
[2017-06-30] MEDS: Vitamin B Complex/Vit C/Vit E 1 EACH TABLET PO SCH (07:50)
[2017-06-30] MEDS: Lactulose Oral Soln 20 GM/30 ML UDC PO SCH (07:50)
[2017-06-30] MEDS: Magnesium Oxide 400 MG TABLET PO SCH (07:51)
[2017-06-30] MEDS: Thiamine (B-1) 100 MG TABLET PO SCH (07:51)
[2017-06-30] MEDS: Folic Acid 1 MG TABLET PO SCH (07:51)
[2017-06-30] MEDS: APIXABAN 5 MG TABLET PO SCH (07:51)
[2017-06-30] MEDS: Furosemide 20 MG TABLET PO SCH (07:51)
[2017-06-30] MEDS: Fluticasone Propionate Nasal 50 MCG/SPRAY BOTTLE NS SCH (07:51)
[2017-06-30] MEDS: Diltiazem CD (24hr) 240 MG CAPSULE PO SCH (07:51)
[2017-06-30] MEDS: Nicotine 14 MG PATCH.TD24 TD SCH (07:52)
[2017-06-30] MEDS: Loratadine 10 MG TABLET PO SCH (07:52)
--- NOTE | 2017-06-30 09:58 | Discharge Summary ---
Date of Encounter: 06/30/17 Time of Encounter: 09:50 - Discharge Diagnosis (1) Hyperbilirubinemia Priority: Primary Status: Acute (2) Acute pancreatitis Priority: Primary Status: Resolved Qualifiers: Pancreatitis type: alcohol induced Acute pancreatitis complication: no infection or necrosis Qualified Code(s): K85.20 - Alcohol induced acute pancreatitis without necrosis or infection (3) Acute metabolic encephalopathy Priority: Primary Status: Resolved (4) Alcohol withdrawal delirium Priority: Primary Status: Resolved (5) Chronic alcohol dependence, continuous Priority: Secondary Status: Acute (6) Paroxysmal atrial fibrillation Priority: Secondary Status: Chronic (7) GERD (gastroesophageal reflux disease) Priority: Secondary Status: Chronic Qualifiers: Esophagitis presence: esophagitis presence not specified Qualified Code(s) : K21.9 - Gastro-esophageal reflux disease without esophagitis - Discharge Medications Home Medications: Cholecalciferol (Vitamin D3) [Vitamin D] 10,000 unit PO 2XW 05/23/15 [History] Fluticasone Propionate Nasal [Flonase] 2 spray NS DAILY 05/23/15 [History] Folic Acid 1 mg PO DAILY 05/23/15 [History] Loratadine [Claritin] 10 mg PO DAILY 05/23/15 [History] Magnesium 250 mg PO DAILY 05/23/15 [History] Omeprazole [PriLOSEC] 40 mg PO DAILY 05/23/15 [History] Diltiazem CD (24hr) [Cardizem CD] 240 mg PO DAILY #30 cap.er.24h 06/06/15 [Rx] Albuterol Sulfate [Ventolin Hfa] 2 puff IH QID PRN 11/18/16 [History] Apixaban [Eliquis] 5 mg PO BID 11/18/16 [History] DULoxetine [Cymbalta] 30 mg PO DAILY 11/18/16 [History] Dicyclomine [Bentyl] 20 mg PO QID 11/18/16 [History] Furosemide [Lasix] 20 mg PO BID 11/18/16 [History] Lidocaine Patch [Lidoderm 5% patch] 1 each TP DAILY PRN 11/18/16 [History] Metoprolol [Lopressor] 100 mg PO BID 11/18/16 [History] Mometasone/Formoterol [Dulera 100 Mcg/5 Mcg Inhaler] 1 puff IH BID 11/18/16 [ History] Nitroglycerin [Nitrostat] 0.4 mg SL Q5M PRN 11/18/16 [History] HYDROcodone/Acet 7.5/325 mg [[place] 7.5-325 mg] 1 tab PO BID PRN 06/20/17 [ History] Tiotropium [employer] [Spiriva Respimat] 1 puff IH DAILY 06/20/17 [History] Lactulose 10 gm PO BID PRN #1000 mls 06/30/17 [Rx] Allergies/Adverse Reactions: 3 Allergy/AdvReac Type Severity Reaction Status Date / Time prednisone AdvReac Joint Pain Verified 06/20/17 15:36 Procedures/tests Complete & Pending: Procedures Performed prior 72 hours Category Date Time Status US liver [US] Routine Exams 06/28/17 08:30 Completed Date of admission: 06/20/17 19:55 Primary care physician: Sugar Diggs CNP Consults: 06/23/17 16:44 Consult to Physical Therapy [CONS] Routine Comment: Evaluate, develop and implement POC Reason for Consult: evaluate for placement 06/25/17 15:07 Consult to Gastroenterology [CONS] Routine Consulting Provider: Gastroenterology Kia Reason for Consult: Acute pancreatitis Call Completed: Yes - Patient Status Disposition: Home, Self-Care Condition: Good Overall status at discharge: patient is back to baseline - Discharge Instructions Follow Up With: Dwight Meraz MD [Partnered Physician] - (Web Request entered, office will call with date and time of appt. Thank you) Sugar Diggs CNP [Primary Care Provider] - Additional Instructions: please f/u with GI Dr. Meraz in one week - Diet and Activity Activity: increase activity as tolerated Diet: advance to your usual diet Hospital course: Mr. Pires is a 46 year old male with a history of alcohol abuse complicated by recurrent episodes of acute pancreatitis was brought in for altered mental status. Per patient he woke up confused with a fever and yellow eyes. Pt was admitted with severe acute pancreatitis and jaundice. he was placed on NPO initially and started him on banana bag and aggressive IV hydration. He was in severe delirium initially due to alcohol withdrawl symptoms. He also happened to have severe pancreatitis showed on CT of abd , MRI fo Abd and U/S of abdomen. He was placed on empirical abx with Rocephin. however his WBC stayed normal and he remained afebrile through this hospitalization. However his total Bili, direct Bili and Alk phos kept on trending up. So consulted GI who did evaluated the pt and did an extnesive immunological work up which were negative so far. He does have severely elevated haptoglobin and Serumf erritin levels. Send out for Hemochromatosis work up. Clinically his symptoms started improving , he is tolerating PO intake well from last few days. His total Bili and direct Bili also started trending down , his direct Bili was at 4.0 today. It seems like his hyperbilirubinemia is mostly due to alcohol induced hepatitis. GI recommend to f/u with them as an out pt. So will d/c him home in stable condition today. he is not in any more alcohol withdrawal symptoms. Counseled to quit drinking and recommend to close f/u with GI. - Time Spent with Patient Total time spent providing and/or coordinating discharge services: Greater than 30 minutes (Spend 35 minutes on his discharge summary due to prolonged length of hospital stay and to discuss about discharge instructions at length) - Constitutional Vitals: Temp Pulse Resp BP Pulse Ox 98.1 F 84 16 136/77 97 06/30/17 07:08 06/30/17 07:08 06/30/17 07:08 06/30/17 07:08 06/30/17 07:08 General appearance: Present: A&O X 3, no acute distress, obese, answers questions appropriately - Head Head exam: Present: atraumatic, normal inspection - Eye Eye exam: Present: scleral icterus (improving) - Neck Neck exam general surgery: Present: supple - Respiratory Respiratory exam: Present: CTAB. Absent: accessory muscle use, rales, rhonchi, wheezes - Cardiovascular Cardiovascular exam: Present: RRR, +S1, +S2. Absent: diastolic murmur, gallop, rubs, systolic murmur - GI/Abdominal GI/Abdominal exam: Present: normal bowel sounds, soft. Absent: distended, pulsatile mass, rebound, rigid, no peritoneal signs - Extremities Exam Extremities exam: Absent: calf tenderness, pedal edema, tenderness - Back Exam Back exam: Absent: CVA tenderness (L), CVA tenderness (R) - Neurological Exam Neurological exam: Present: alert, oriented X3 - Psychiatric Psychiatric exam: Present: normal affect, normal mood - Skin Skin exam: Absent: rash
[2017-06-30] MEDS ORDERED: FLUARIX QUAD 2017-18 36MOS UP/PF 0.5 ML SYRINGE IM ONE (10:47)
[2017-06-30 11:04] LABS: Albumin 2.8 g/dL (3.5-5.0); Albumin/Globulin Ratio 0.6 (1.1-2.2); Bilirubin,Indirect 1.7 mg/dL (0.0-1.2); Bilirubin,Total 5.7 mg/dL (0.2-1.2); Globulin 4.5 g/dL (2.4-3.5); Total Protein 7.3 g/dL (6.0-8.3)
[2017-07-01 16:21] LABS: C282Y Hemochromatosis Mutation NEGATIVE; H63D Hemochromatosis Mutation NEGATIVE; HFE Specimen Type WHOLE BLOOD; S65C Hemochromatosis Mutation NEGATIVE
== END 2017-06-30 11:15 | disposition home or self-care (01) | DRG 282 ==
LOC: 3ANU 15:34 → EMEROO 15:34 → SUATTDRO 19:55 → 3ANU 21:00
PROVIDERS: ADMIT Internal Medicine; ATTEND Family Medicine

== ENCOUNTER 2018-03-04 09:13 | Inpatient (IN) ==
--- NOTE | 2018-03-03 22:26 | Discharge Summary ---
<Lashay Valentin - Last Filed: 03/03/18 22:22> Date of Encounter: 03/03/18 - Discharge Diagnosis (1) Arthritis of knee, right Priority: Primary Status: Acute (2) Status post total knee replacement, right Priority: Primary Status: Acute (3) Alcohol abuse Priority: Secondary Status: Chronic (4) CAD (coronary artery disease) Priority: Secondary Status: Chronic Qualifiers: Coronary Disease-Associated Artery/Lesion type: [place] artery (5) Chronic pain Priority: Secondary Status: Chronic (6) Tobacco use Priority: Secondary Status: Chronic (7) CLAUDIA (obstructive sleep apnea) Priority: Secondary Status: Chronic (8) Atrial fibrillation Priority: Secondary Status: Chronic Qualifiers: Atrial fibrillation type: unspecified Qualified Code(s): I48.91 - Unspecified atrial fibrillation (9) Chronic anticoagulation Priority: Secondary Status: Chronic (10) Obesity (BMI 30.0-34.9) Priority: Secondary Status: Chronic - Hospital Course Hospital course: Mr. Pires is a 47 year old male - Time Spent with Patient Total time spent providing and/or coordinating discharge services: - Discharge Medications Home Medications: OxyCODONE Immed Rel [Roxicodone 5 MG] 5 mg PO Q6HR PRN 7 Days #28 tablet [Rx] Albuterol Sulfate [Ventolin Hfa] 2 puff IH Q4H PRN 03/04/18 [History] Apixaban [Eliquis] 5 mg PO BID 03/04/18 [History] Cholecalciferol (Vitamin D3) [Vitamin D3] 10,000 unit PO DAILY 03/04/18 [History ] DULoxetine [Cymbalta] 30 mg PO DAILY 03/04/18 [History] Dicyclomine [Bentyl] 20 mg PO QID 03/04/18 [History] Folic Acid 1 mg PO DAILY 03/04/18 [History] Furosemide [Lasix] 20 mg PO BID 03/04/18 [History] Gabapentin [Neurontin] 600 mg PO TID 03/04/18 [History] Lidocaine Patch [Lidoderm 5% patch] 1 patch TD DAILY 03/04/18 [History] Lipase/Protease/Amylase [Zenpep Dr 40,000 Unit Capsule] 1 cap PO BID 03/04/18 [ History] Loratadine [Claritin] 10 mg PO DAILY 03/04/18 [History] Metoprolol [Lopressor] 100 mg PO BID 03/04/18 [History] Mometasone/Formoterol [Dulera 100 Mcg/5 Mcg Inhaler] 2 puff IH BID 03/04/18 [ History] Tiotropium [employer] [Spiriva Respimat] 2 puff IH DAILY 03/04/18 [History] dilTIAZem HCl [Diltiazem ER] 240 mg PO DAILY 03/04/18 [History] Allergies/Adverse Reactions: 3 Allergy/AdvReac Type Severity Reaction Status Date / Time morphine AdvReac See Verified 03/04/18 10:04 Comments prednisone AdvReac Joint Pain Verified 03/04/18 10:04 Primary care physician: Sugar Diggs CNP - Patient Status Disposition: Home, Self-Care Condition: Good - Discharge Instructions Follow Up With: Sugar Diggs CNP [Primary Care Provider] - <Iker Palma - Last Filed: 03/05/18 08:26> Orders not resulted at time of discharge: Pending orders 03/04/18 00:01 XR knee RT limited 1-2V [XR] Routine H/H [Hemoglobin and Hematocrit] [HEME] Routine Date of Encounter: 03/05/18 Time of Encounter: 08:26 - Discharge Diagnosis (1) Status post total knee replacement, left Priority: Primary Status: Acute (2) CAD (coronary artery disease) Priority: Secondary Status: Chronic Qualifiers: Coronary Disease-Associated Artery/Lesion type: [place] artery [place] vs. transplanted heart: [place] heart Associated angina: angina presence unspecified Qualified Code(s): I25.10 - Atherosclerotic heart disease of [place] coronary artery without angina pectoris (3) Chronic pain Priority: Secondary Status: Chronic Qualifiers: Chronic pain type: other chronic pain Qualified Code(s): G89.29 - Other chronic pain (4) Tobacco use Priority: Secondary Status: Chronic (5) CLAUDIA (obstructive sleep apnea) Priority: Secondary Status: Chronic (6) Atrial fibrillation Priority: Secondary Status: Chronic Qualifiers: Atrial fibrillation type: unspecified Qualified Code(s): I48.91 - Unspecified atrial fibrillation (7) Chronic anticoagulation Priority: Secondary Status: Chronic (8) Obesity (BMI 30.0-34.9) Priority: Secondary Status: Chronic (9) Arthritis of knee, right Priority: Primary Status: Acute (10) Status post total knee replacement, right Priority: Primary Status: Acute - Hospital Course Hospital course: Mr. Pires is a 47 year old male Status post total knee replacement The patient had an uneventful postoperative course. They received antibiotics and physical therapy and were discharged in stable condition. There will follow -up in the office in 2 weeks. - Time Spent with Patient Total time spent providing and/or coordinating discharge services: Primary care physician: Sugar Diggs CNP - Patient Status Functional capacity at discharge: uses cane/walker Overall status at discharge: patient is progressing back to baseline
--- NOTE | 2018-03-04 09:41 | History & Physical Report ---
Date of Encounter: 03/04/18 Time of Encounter: 09:41 24 Hour HP Update - Instructions Instructions: If the History and Physical is less than 30 days old and was completed prior to A.M. admission and or procedure and has NOT been updated on calendar day of procedure please complete this update prior to performing procedure. - Update Patient reports changes in Medical Condition: No Changes in examination, assessment, or condition: No Changes in Medication: No Preop tests/diagnostics Reviewed: Yes Surgery Remains Indicated: Yes Consent for Planned Operative Procedure(s) Verified: Yes - Pre-Operative Checklist Preoperative Checklist Indicated: No Prophylactic Antibiotic Ordered: Yes Is VTE Prophylaxis Indicated?: Yes
[2018-03-04] MEDS ORDERED: Albuterol 2.5 MG/3 ML NEBULIZER IH ONE ×3 (10:02→11:51)
[2018-03-04] MEDS ORDERED: CeFAZolin Syr 2,000MG/20 ML 2,000 MG/20 ML SYRINGE IVPB ONE (10:02)
[2018-03-04] MEDS ORDERED: Acetaminophen IV 1,000 MG/100 ML INFUS..BTL IVPB ONE (10:05)
--- NOTE | 2018-03-04 10:06 | Anesthesia Evaluation PreOp ---
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: Other (nerve damage since last surgery (weakness/neuropathic type pain)) Other Medical History: Hepatic (hx elevated LFT's (secondary to hx alcohol use?) ), GERD, Other (hx pancreatitis; heavy alcohol use) Anesthesia History: No Prior Anesthetic Complications Alcohol Use: heavy, recent Drug use: none Medications and Allergies OxyCODONE Immed Rel [Roxicodone 5 MG] 5 mg PO Q6HR PRN 7 Days #28 tablet [Rx] 3 Allergy/AdvReac Type Severity Reaction Status Date / Time morphine AdvReac See Verified 03/04/18 10:04 Comments prednisone AdvReac Joint Pain Verified 03/04/18 10:04 - Meds/Allergy Pre-op Review Medications Reviewed: Yes Allergies Reviewed: Yes Beta Blockers on Current Med List: Yes (metoprolol) If Beta Blockers taken, Date/Time (Last Dose taken): 03-04-18 metoprolol 7 am Anesthesia Results - Labs Laboratory Tests 03/02/18 03/02/18 03/02/18 10:15 10:15 10:15 WBC 8.7 Hgb 15.2 Hct 44.0 Plt Count 249 PT 12.2 H INR 1.1 APTT 33.9 Sodium 135 L Potassium 3.5 Chloride 104 Carbon Dioxide 24 BUN 18 Creatinine 0.80 Est GFR ( Amer) > 60 Est GFR (Non-Af Amer) > 60 BUN/Creatinine Ratio 23 - Imaging EKG: report reviewed, image reviewed (SR) Anesthesia Exam Last Vital Signs Temp 97.9 F 03/04/18 09:29 Pulse 70 03/04/18 09:29 Resp 18 03/04/18 09:29 BP 136/91 03/04/18 09:29 Pulse Ox 96 03/04/18 09:29 Weight: 111 kg NPO (# of Hours): > 8 hrs - HEENT Pupil (Motor): Pupils equal, EOMI Mallampati: III Teeth: Poor dentition Oral Opening: Greater than 3 - AGRICULTURAL COMMODITIES INSPECTOR LOC: Oriented AGRICULTURAL COMMODITIES INSPECTOR Motor: Deficit RLE AGRICULTURAL COMMODITIES INSPECTOR Sensory: Deficit: RLE - Cardiac Rhythm: Regular Murmur: None - Pulmonary Breath Sounds: bilateral Clear (some wheezing) Respiratory Effort: Symmetrical Anesthesia Assess/Plan ASA Score: 3 Modified Demetrice Scale for Level of Consciousness: Cooperative, oriented, and tranquil Anesthetic Plan: General (no regional/no intra-thecal morphine due to pre-op neuro deficits and hx pancreatitis associated with morphine) Monitoring Plan: Standard Monitors Recovery Plan: PACU
[2018-03-04] MEDS ORDERED: Ringers Solution, Lactated 1,000 ML IVC SCH ×3 (10:15→15:44)
[2018-03-04] MEDS ORDERED: *HR* FentaNYL PATCH 50 MCG PATCH TD SCH (10:15)
[2018-03-04] MEDS ORDERED: Ondansetron 4 MG/2 ML VIAL ONE (10:27)
[2018-03-04] MEDS ORDERED: Lidocaine -MPF 2% 2 ML VIAL ONE (10:27)
[2018-03-04] MEDS ORDERED: *HR* Propofol 200 MG/20 ML VIAL IVP ONE (10:28)
[2018-03-04] MEDS ORDERED: *HR* FentaNYL (PF) 100 MCG/2 ML VIAL ONE ×3 (10:28→12:52)
[2018-03-04] MEDS ORDERED: *HR* Midazolam HCl 2 MG/2 ML VIAL ONE (10:28)
[2018-03-04] MEDS ORDERED: Ethanol\\Acetic Acid\\Na Ace\\Ben 1,000 ML IRRIG.SOLN IR ONE (11:47)
[2018-03-04] MEDS ORDERED: Lidocaine 1% 20 ML MDV ONE (11:48)
[2018-03-04] MEDS ORDERED: Naloxone 0.4 MG/ML INJ IVP PRN ×2 (11:51→15:44)
[2018-03-04] MEDS ORDERED: *HR* OxyCODONE Immed Rel 5 MG TABLET PO PRN (11:51)
[2018-03-04] MEDS ORDERED: *HR* Labetalol 20 MG/4 ML SYRINGE IVP PRN (11:51)
[2018-03-04] MEDS ORDERED: *HR* Promethazine 25 MG/ML VIAL IVP PRN (11:51)
[2018-03-04] MEDS ORDERED: *HR* HYDROmorphone 2 MG TABLET PO PRN (11:51)
[2018-03-04] MEDS ORDERED: Ondansetron 4 MG/2 ML VIAL IVP ONE (11:51)
--- NOTE | 2018-03-04 13:39 | Orthopedic Operative Note ---
Date of procedure: 03/04/18 Pre-op diagnosis: Right knee arthritis Post-op diagnosis: same Procedure: Procedure: Right robotic-assisted Total knee replacement Estimated blood loss: 500 cc Hardware: Metal and polyethylene replacement. [place] Femur: 6 Tibia: 7 TS insert: 11 Patella: 39 Exam Under anesthesia: 1 degree hyperextension 8 degree varus as calculated by the robot full flexion and no instability Procedural Notes: Grade 3 arthritic changes all 3 compartments. Operative procedure: The patient was brought to the operating room and placed on the operating room table. After general anesthesia was administered the operative knee was examined. Findings were noted in the exam under anesthesia. The operative extremity was prepped and draped in sterile surgical fashion. The patient received IV antibiotics prior to skin incision. A standard midline incision was made centered over the patella. The incision was made through the skin and subcutaneous tissue. A medial parapatellar tendon approach was performed. Care was taken to preserve tissue along the medial aspect of the patella. And to protect the patella tendon. The deep MCL was released off the medial tibia. The infra patella fat pad was excised. The patella was everted and cut was made at the level of the insertion of the quadriceps and patella tendon. The patella was sized to a 39 the guide was seated and the lug holes are drilled. Knee was brought into flexion. Patient noted to have Steinmann pins were placed in the tibia and the femur for the tibial and femoral arrays respectively. Checkpoints were also placed in the tibia and the femur for calculation purposes. The knee including the femur and the tibial registered. Osteophytes, ACL and PCL were excised at this point. Extension and flexion were assessed with a valgus stress components were adjusted on the computer to balance the knee. Femoral cuts were made first with robotic assistance, these included the anterior cut posterior cuts chamfer cuts. Tibial cut was then performed with robotic assistance as well. Bone fragments were removed, as well as the medial and lateral meniscus. The size 6 femoral guide was seated box cut was made lug holes are drilled. The size 7 tibial tray was seated and prepared with the fin cutter. Trial reduction with the 11 TS Jalyn revealed extension of 0 degree and 6 degree varus full flexion. No varus valgus instability. Trial reduction revealed excellent patella tracking. All trial components were removed all bony surfaces were irrigated. The Tibia was seated followed by the femur, The Jalyn size 11 was seated and secured patella. Patient had similar findings for motion and stability. The knee was then irrigated out with 2 L of pulse irrigation. The extensor mechanism was closed with #2 FiberWire suture and #2 PDS suture. The subcutaneous tissue was then irrigated and closed deep with #1 PDS suture superficially with 0 PDS suture and skin was closed with zip tie The patient was then placed in a sterile dressing and a postoperative brace extubated and transferred to recovery room in stable condition. Anesthesia: GETA Was there an resident assistant cna present: Yes Tour Consultant: Lashay Valentin Estimated blood loss (cc): 500 Condition: stable Disposition: PACU
[2018-03-04] MEDS: *HR* Meperidine 25 MG/ML SYRINGE IVP PRN ×2 (13:48→14:05)
[2018-03-04 14:09] LABS: Hematocrit 38.6 % (37.5-50.1); Hemoglobin 13.1 g/dL (12.9-16.9)
[2018-03-04] MEDS: *HR* HYDROmorphone (PF) 1 MG/ML SYRINGE IVP PRN ×2 (14:10→14:38)
--- NOTE | 2018-03-04 15:37 | Anesthesia Evaluation Post Op ---
Date of Encounter: 03/04/18 Time of Encounter: 15:36 - Vital Signs Vital Signs: Last Vital Signs Temp 98.3 F 03/04/18 15:00 Pulse 71 03/04/18 15:10 Resp 16 03/04/18 15:10 BP 136/78 03/04/18 15:10 Pulse Ox 95 03/04/18 15:10 - Lungs Lungs: Clear Ascult./Percussion - Airway Airway: Non-obstructed - Cardiovascular Regular Rate - Mental Status Mental Status: Alert & Oriented, Answers Appropriately - Pain Pain Scale: 8 - Nausea Vomiting Nausea Vomiting: Not Present - Hydration Hydration: Tolerates oral liquids - Discharge PostOp Status: Transfer Patient to floor
[2018-03-04] MEDS ORDERED: traMADol 50 MG TABLET PO PRN (15:44)
[2018-03-04] MEDS ORDERED: NON-FORMULARY MEDICATION 1 EACH EACH (Gabapentin [Neurontin] 600 MG) PO SCH (15:44)
[2018-03-04] MEDS ORDERED: Sennosides 8.6 MG TABLET PO PRN (15:44)
[2018-03-04] MEDS ORDERED: Ondansetron 4 MG/2 ML VIAL IVP PRN (15:44)
[2018-03-04] MEDS ORDERED: Temazepam 15 MG CAPSULE PO PRN (15:44)
[2018-03-04] MEDS ORDERED: MOM Conc 10 ML UD.LIQ PO PRN (15:44)
[2018-03-04] MEDS ORDERED: *HR* OxyCODONE/APAP 5/325 TABLET PO PRN (15:44)
[2018-03-04] MEDS: Furosemide 20 MG TABLET PO SCH (16:41)
[2018-03-04] MEDS: *HR* OxyCODONE Immed Rel 5 MG TABLET PO PRN ×2 (18:04→22:10)
[2018-03-04] MEDS: Budesonide/Formoterol 80/4.5 MDI IH SCH (20:05)
[2018-03-04] MEDS: Gabapentin 300 MG CAPSULE PO SCH (21:08)
[2018-03-04] MEDS: Metoprolol 100 MG TABLET PO SCH (21:08)
[2018-03-04] MEDS: Apixaban 5 MG TABLET PO SCH (21:08)
[2018-03-05 01:34] LABS: Hematocrit 36.4 % (37.5-50.1); Hemoglobin 12.4 g/dL (12.9-16.9)
[2018-03-05 01:51] LABS: BUN/Creatinine Ratio 20 (6-26); Blood Urea Nitrogen 19 mg/dL (6-20); Calcium 8.5 mg/dL (8.6-10.3); Carbon Dioxide 24 mEq/L (23-29); Chloride 99 mEq/L (98-107); Glucose 352 mg/dL (70-105); Osmolality,Calculated 286 (280-300); Potassium 4.6 mEq/L (3.5-5.1); Sodium 130 mEq/L (136-145); eGFR For African Americans > 60 (> 60); eGFR For Non-African Americans > 60 (> 60)
[2018-03-05] MEDS: *HR* OxyCODONE Immed Rel 5 MG TABLET PO PRN ×3 (02:14→10:30)
[2018-03-05 07:33] VITALS: BP 143/91
[2018-03-05] MEDS: Apixaban 5 MG TABLET PO SCH (08:31)
[2018-03-05] MEDS: Metoprolol 100 MG TABLET PO SCH (08:31)
[2018-03-05] MEDS: Furosemide 20 MG TABLET PO SCH (08:31)
[2018-03-05] MEDS: Gabapentin 300 MG CAPSULE PO SCH (08:32)
[2018-03-05] MEDS ORDERED: Loratadine 10 MG TABLET PO SCH (09:00)
[2018-03-05] MEDS ORDERED: Diltiazem CD (24hr) 240 MG CAPSULE PO SCH (09:00)
[2018-03-05] MEDS ORDERED: NON-FORMULARY MEDICATION 1 EACH EACH (Cholecalciferol (Vitamin D3) [Vitamin D3] 10,000 UNI PO SCH (09:00)
[2018-03-05] MEDS ORDERED: Cholecalciferol (D-3) 1,000 UNIT TABLET PO SCH (09:00)
[2018-03-05] MEDS ORDERED: Folic Acid 1 MG TABLET PO SCH (09:00)
[2018-03-05] MEDS ORDERED: Tiotropium 18 MCG inhalation IH SCH (10:00)
[2018-03-05] MEDS: Budesonide/Formoterol 80/4.5 MDI IH SCH (10:30)
--- NOTE | 2018-03-05 12:04 | Physician Discharge Referral ---
Home Health/Hosp Referral Info Transfer to: Home Health Attending Provider: Provider in Charge Post Discharge: PCP - Diagnosis (1) Arthritis of knee, right Priority: Primary Status: Acute (2) Status post total knee replacement, right Priority: Primary Status: Acute (3) Alcohol abuse Priority: Secondary Status: Chronic (4) CAD (coronary artery disease) Priority: Secondary Status: Chronic (5) Chronic pain Priority: Secondary Status: Chronic (6) Tobacco use Priority: Secondary Status: Chronic (7) CLAUDIA (obstructive sleep apnea) Priority: Secondary Status: Chronic (8) Atrial fibrillation Priority: Secondary Status: Chronic (9) Chronic anticoagulation Priority: Secondary Status: Chronic (10) Obesity (BMI 30.0-34.9) Priority: Secondary Status: Chronic - Respiratory Orders None Smoking Cessation: Smoking cessation has been advised. For more information, call the [place] Tobacco Quit Line at 9-349-TPDN-NOW. - Diet/Nutrition Diet/Nutrition Orders: Regular - Activity Activity Orders: Up ad eliana, Ambulate, Chair, Walker - Services Needed Following services are medically necessary services: Nursing, Home Health Aide, Physical Therapy Other Treatments: Opsite dressing, leave intact until first post-operative visit. If dressing becomes >50% saturated, contact office, remove dressing and place appropriate dressing in its place. Do not allow for dressing to get wet. Zipline/[place] in place, plan to remove at post-operative day #14-16. Total Joint Precautions x 6 weeks Apply cold therapy wrap 3-6x/day for 20 minutes at a time. Encourage ambulation throughout the day Use Incentive spirometer 10x/hour. Elevate affected extremity above heart as tolerated. Brace: Wear knee immobilizer at night x 2 weeks.~ *Resume Eliquis - Transfer Medications Home Medications: OxyCODONE Immed Rel [Roxicodone 5 MG] 5 mg PO Q6HR PRN 7 Days #28 tablet [Rx] Albuterol Sulfate [Ventolin Hfa] 2 puff IH Q4H PRN 03/04/18 [History] Apixaban [Eliquis] 5 mg PO BID 03/04/18 [History] Cholecalciferol (Vitamin D3) [Vitamin D3] 10,000 unit PO DAILY 03/04/18 [History ] DULoxetine [Cymbalta] 30 mg PO DAILY 03/04/18 [History] Dicyclomine [Bentyl] 20 mg PO QID 03/04/18 [History] Folic Acid 1 mg PO DAILY 03/04/18 [History] Furosemide [Lasix] 20 mg PO BID 03/04/18 [History] Gabapentin [Neurontin] 600 mg PO TID 03/04/18 [History] Lidocaine Patch [Lidoderm 5% patch] 1 patch TD DAILY 03/04/18 [History] Lipase/Protease/Amylase [Zenpep Dr 40,000 Unit Capsule] 1 cap PO BID 03/04/18 [ History] Loratadine [Claritin] 10 mg PO DAILY 03/04/18 [History] Metoprolol [Lopressor] 100 mg PO BID 03/04/18 [History] Mometasone/Formoterol [Dulera 100 Mcg/5 Mcg Inhaler] 2 puff IH BID 03/04/18 [ History] Tiotropium [place] [Spiriva Respimat] 2 puff IH DAILY 03/04/18 [History] dilTIAZem HCl [Diltiazem ER] 240 mg PO DAILY 03/04/18 [History] Allergies/Adverse Reactions: 3 Allergy/AdvReac Type Severity Reaction Status Date / Time morphine AdvReac See Verified 03/04/18 10:04 Comments prednisone AdvReac Joint Pain Verified 03/04/18 10:04 Certification: Further, I certify that my clinical findings support that this patient is homebound (i.e. absences from home require considerable and taxing effort and are for medical reasons or mormon services or infrequently or short duration when for other reasons) because: Homebound Reason: Post-surgery restriction and or conditions limit ability to leave home Attestation: My signature below is to certify that this patient is under my care and that I, or nurse practitioner, or a physician's family services assistant working with me, has a face-to -face encounter with this patient.
== END 2018-03-05 11:47 | disposition home or self-care (01) | DRG 302 ==
LOC: SAMDAY 09:13 → 3NENU 15:42
PROVIDERS: ADMIT Orthopaedic Surgery; ATTEND Orthopaedic Surgery